=== PATIENT | female | born 1970 | race Caucasian/White ===

== ENCOUNTER → 2018-01-31 | Outpatient (CLI) | payer OTHER ==
--- NOTE | 2018-02-02 21:07 | Diagnostic Imaging Report ---
The current study was also evaluated with a Computer Aided Detection (CAD) system. 3-D tomosynthesis was also performed and reviewed. Digital mammogram bilateral screening This is the patient's baseline study. At this time, there are no current complaints. There are scattered fibroglandular densities in both breasts which could obscure a lesion. In the 9 o'clock position of the left breast approximately 7-8 CM deep to the nipple there is a group of microcalcifications. I would recommend that these microcalcifications be compressed and magnified in the CC and ML projection so that they can be better characterized. There is no primary or secondary sign of malignancy noted otherwise. IMPRESSION: Additional mammographic views of the left breast would be recommended for further study. ACR BI-RADS Category 0: Incomplete. (Needs additional imaging evaluation). Result letter will be mailed to the patient. Note: At least 10% of breast cancer is not imaged by mammography. Dictated by: Dictated on workstation # [id number]
== END ==
LOC: RAD 08:08
PROVIDERS: ATTEND Nurse Practitioner Family
DX: Z12.31 Encounter for screening mammogram for malignant neoplasm of breast (principal)
CPT/HCPCS: 77067

== ENCOUNTER → 2018-04-05 | Outpatient (CLI) | payer OTHER ==
--- NOTE | 2018-04-05 12:57 | Diagnostic Imaging Report ---
Indication: Abnormal left mammogram. Patient presents for additional views. Correlation is made with the screening mammogram from 01/31/2018. 2-D and 3-D unilateral left diagnostic mammography was performed with CAD. Magnification CC and MLO as well as mediolateral views were performed. There is nodularity in the outer left breast mid-to posterior depth slightly cephalad to the nipple with numerous suspicious calcifications. This is highly suspicious for neoplasm. Calcifications appear to be pleomorphic. Impression: Suspicious microcalcifications within a nodular mass in the upper and outer left breast posterior depth. This is suspicious for neoplasm and further evaluation with ultrasound is recommended. BI-RADS 0 ACR BI-RADS Category 0: Incomplete. (Needs additional imaging evaluation). Result letter will be mailed to the patient. Note: At least 10% of breast cancer is not imaged by mammography. Dictated by: Dictated on workstation # [id number]
--- NOTE | 2018-04-05 18:52 | Diagnostic Imaging Report ---
INDICATION: Abnormal left mammogram demonstrating microcalcifications and nodularity in the outer left breast. COMPARISON: Correlation is made with diagnostic mammogram earlier the same day. EXAMINATION: Sonographic interrogation of the outer left breast. FINDINGS: Hypoechoic mass at the 3 o'clock location, 7 cm from the nipple. This measures 8 mm x 7 mm x 8 mm. This likely accounts for the mammographic density. There appears to be some mild posterior acoustic shadowing present. No other abnormalities are seen. IMPRESSION: Hypoechoic mass at the 3 o'clock location of the left breast 7 cm from the nipple, corresponding to the mammographic abnormality. Features are concerning for breast neoplasm. Tissue sampling is recommended. This would be amenable to ultrasound-guided core biopsy. ACR BI-RADS Category 4: Suspicious abnormality. Result letter will be mailed to the patient. Note: At least 10% of breast cancer is not imaged by mammography. Dictated by: Dictated on workstation # [id number]
== END ==
LOC: RAD 12:29
PROVIDERS: ATTEND Nurse Practitioner Family
DX: N63.20 Unspecified lump in the left breast, unspecified quadrant (principal); R92.1 Mammographic calcification found on diagnostic imaging of breast
CPT/HCPCS: 76642

== ENCOUNTER → 2018-04-18 | Outpatient (CLI) | payer OTHER ==
[~2018-04-18] MED LIST: LIDOCAINE 1% INJ 20 ML 20 ML VIAL ONE
--- NOTE | 2018-04-18 10:56 | Diagnostic Imaging Report ---
EXAMINATION: Ultrasound-guided biopsy of the left breast. INDICATION: Abnormal ultrasound and mammogram. The recent left breast ultrasound exam of 04/05/2018 noted a hypoechoic mass in the 3 o'clock position of the left breast approximately 7 cm from the nipple. This finding was concerning for neoplasm. PROCEDURE: Following aseptic preparation of the skin and administration of local anesthesia, the area in question was biopsied using ultrasound guidance. Five passes with an Achieve 14-gauge needle were obtained. Following the procedure, a clip was inserted into the biopsy site. The patient tolerated the procedure well and was dismissed in good condition. IMPRESSION: There has been successful ultrasound-guided biopsy of the left breast. A final pathology report is pending. Dictated by: Dictated on workstation # [id number]
--- NOTE | 2018-04-20 15:49 | RADIOLOGY REPORT ---
NAME: JET DEGROOT [facility] REC#: [id number] PT STATUS: REG CLI : 1970 PHYSICIAN: CAPO HELTON MD ADMIT DATE: 04/05/18/RAD Signed Date of Exam:04/18/18 MAMMO LT DIAGNOSTIC EXAMINATION: Left diagnostic mammogram. INDICATION: Post biopsy. FINDINGS: The patient did undergo an ultrasound-guided biopsy of the left breast earlier today. There is a clip in the region of the calcifications in question. The clip lies inferior and lateral to the calcifications. IMPRESSION: There is a stereotactic clip in the region of the calcifications in question. A final Pathology report is pending. Dictated by: Dictated on workstation # [id number] Dict: 04/18/18 1245 Trans: 04/19/18 0949 [id number] Interpreted by: CAPO HELTON MD Electronically signed by: CAPO HELTON MD 04/19/18 0949 MTDD
== END ==
LOC: RAD 08:32
PROVIDERS: ATTEND Nurse Practitioner Family
DX: D05.12 Intraductal carcinoma in situ of left breast (principal)
CPT/HCPCS: 19083; 88305; 88360

== ENCOUNTER 2018-04-26 08:43 | Outpatient (RCR) | payer OTHER ==
[2018-05-11] MEDS ORDERED: LISI1TAB10 PO (12:45)
[2018-05-16] MEDS ORDERED: ACHD5005 PO (11:52)
== END 2018-06-14 10:18 | disposition home or self-care (01) ==
LOC: ONC 08:43
PROVIDERS: ATTEND Internal Medicine Hematology & Oncology
DX: D05.12 Intraductal carcinoma in situ of left breast (principal)
CPT/HCPCS: 99214

== ENCOUNTER 2018-05-16 07:28 | Day surgery (SDC) | payer SELFPAY ==
[~2018-05-16] VITALS: Ht 172.7 cm; Wt 99.3 kg
[~2018-05-16 07:28] MED LIST changes: -LIDOCAINE 1% INJ 20 ML 20 ML VIAL ONE; +LISI1TAB10 PO
--- OUTSIDE RECORDS SUMMARY | 2018-05-16 07:39 | XMS REPORT ---
Author Author KING JAZ [facility] Address [address] [place] [address] Care Team Providers Care Engineering Technologist Name Role Phone JAZ GUNDERSON Unavailable PROBLEMS Type Condition ICD9-CM Code [id number] Code Onset Dates Condition Status SNOMED Code Problem Depressive disorder F32.9 Active 32428438 Problem Acquired hypothyroidism E03.9 Active 588668821 Problem Essential hypertension I10 Active 68023591 Problem Generalized anxiety disorder F41.1 Active 66458466 Problem Acute stress reaction F43.0 Active 03124283 Problem Bilateral acute serous otitis media, recurrence not specified H65.03 Active 975154418 Problem Irritable bowel syndrome, unspecified type K58.9 Active 13341489 Problem Tobacco abuse Z72.0 Active 010948881 Problem Anxiety F41.9 Active 22025772 ALLERGIES No Information ENCOUNTERS Encounter Location Date Diagnosis [place] [id number] [address] Mar, Abnormal mammogram R92.8 [place] [address] [address] Dec, Well woman exam with routine gynecological exam Z01.419 and Screening for breast cancer Z12.31 [place] [address] [place] [id number] [place] [address]996- 7058 Dec, Essential hypertension I10 and Acute stress reaction F43.0 [facility] [address] [address] Aug, Essential hypertension I10 ; Acute stress reaction F43.0 ; Generalized anxiety disorder F41.1 and Tobacco abuse Z72.0 [place] [address] [address] Feb, Essential hypertension I10 and Chest pain, atypical R07.89 [facility] [address] [place] [id number] [place] [address]1084 Feb, Other chest pain R07.89 [facility] [address] 15[address] Feb, Essential hypertension I10 [facility] [address] [address] Jan, Essential hypertension I10 [facility] [address] [address] Oct, Essential hypertension I10 [facility] [address] [address] September, Open bite of unspecified finger without damage to nail, initial encounter S61.259A and Encounter for immunization Z23 [place] [address] [address] September, Essential hypertension I10 [facility] [address] [place] [id number] [place] [address] 78198- 6065 Jun, Depressive disorder F32.9 [place] [address] [place] [id number] [place] [address] 81245- 8697 May, Depressive disorder F32.9 [place] [address] [place] [id number] [place] [address] 13045- 7670 May, Depressive disorder F32.9 ; Acquired hypothyroidism E03.9 ; Essential hypertension I10 and Irritable bowel syndrome, unspecified type K58.9 [facility] [address] [place] [id number] [place] [address] 59073- 7552 May, Depressive disorder F32.9 [place] [address] [place] [id number] [place] [address] 65555- 4396 Apr, [facility] [address] [place] [id number] [place] [address] 65799- 5702 Mar, Depressive disorder F32.9 [facility] [address] [address] Feb, [facility] [address] [place] [id number] [place] [address] 25767- 8318 Feb, Depressive disorder F32.9 [facility] [address] [place] [id number] [place] [address] 99568- 7340 Jan, Depressive disorder F32.9 [facility] [address] [place] [id number] [place] [address] 95376- 5257 Dec, Essential hypertension I10 and Bilateral acute serous otitis media, recurrence not specified H65.03 [facility] [address] [address] Dec, Essential hypertension I10 [place] [address] [place] [id number] [place] [address] 18067- 8504 Dec, Depressive disorder F32.9 [facility] [address] [place] [id number] [place] [address] 00975- 8918 Dec, Establishing care with new doctor, encounter for Z71.89 ; Acquired hypothyroidism E03.9 ; Essential hypertension I10 and Irritable bowel syndrome, unspecified type K58.9 [facility] [address] [place] [address] 60247- 7769 Dec, [facility] [address] [place] [id number] [place] [address] 14854- 0748 Nov, Depressive disorder F32.9 [facility] [address] [place] [id number] [place] [address] 42481- 8542 Oct, Depressive disorder F32.9 [facility] [address] [place] [id number] [place] [address] 02119- 5070 September, Depressive disorder F32.9 [facility] [address] [place] [id number] [place] [address] 82593- 9974 Aug, Depressive disorder F32.9 [facility] [address] [place] [id number] [place] [address] 94734- 9566 Jun, Depressive disorder F32.9 IMMUNIZATIONS No Known Immunizations SOCIAL HISTORY Never Assessed REASON FOR VISIT New Mammo Order PLAN OF CARE VITAL SIGNS MEDICATIONS Unknown Medications RESULTS No Results PROCEDURES No Known procedures INSTRUCTIONS MEDICATIONS ADMINISTERED No Known Medications MEDICAL (GENERAL) HISTORY Type Description Date Medical History Hypothyroidism Medical History hypertension Surgical History cyst removed from shoulder 2008 Hospitalization History No Hospitalization history information
--- OUTSIDE RECORDS SUMMARY | 2018-05-16 07:39 | XMS REPORT ---
Author Author KENYETTA ENCISO Organization [facility] Address [address] 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 109809388 Problem Generalized anxiety disorder F41.1 Active 51852489 Problem Anxiety F41.9 Active 97675947 Problem Acquired hypothyroidism E03.9 Active 629017736 Problem Acute stress reaction F43.0 Active 24985581 Problem Tobacco abuse Z72.0 Active 861793488 ALLERGIES No Information ENCOUNTERS Encounter Location Date Diagnosis [place] [address] [place] [id number] [place] [address] Apr, Ductal carcinoma in situ (DCIS) of left breast D05.12 [place] [address] [place] [address] 69322- 9997 Apr, [facility] [address] [place] [address] 25628- 7183 Mar, Abnormal mammogram R92.8 [facility] [address] [place] [id number] [place] [address] 69601- 9328 Mar, Abnormal mammogram R92.8 [place] [address] [place] [id number] [place] [address] 75207- 0863 Dec, Well woman exam with routine gynecological exam Z01.419 and Screening for breast cancer Z12.31 [place] [address] [place] [id number] [place] [address] 41970- 2041 Dec, Essential hypertension I10 and Acute stress reaction F43.0 [place] [address] [place] [id number] [place] [address] 62734- 9464 Aug, Essential hypertension I10 ; Acute stress reaction F43.0 ; Generalized anxiety disorder F41.1 and Tobacco abuse Z72.0 [place] [address] [place] [id number] [place] [address] 50235- 2054 Feb, Essential hypertension I10 and Chest pain, atypical R07.89 [facility] [address] [address] Feb, Other chest pain R07.89 [place] [address] 86341- 99[address] Feb, Essential hypertension I10 [place] [address] 59861- [address]297 Jan, Essential hypertension I10 [place] [address] 8[address]- 24[address] Oct, Essential hypertension I10 [facility] [address] [address] September, Open bite of unspecified finger without damage to nail, initial encounter S61.259A and Encounter for immunization Z23 [place] [address] [place] [id number] [place] [address] 96945- 5225 September, Essential hypertension I10 [place] [address] [place] [id number] [place] [address] 75746- 5977 Jun, Depressive disorder F32.9 [place] [address] 41271- 28[address] May, Depressive disorder F32.9 [place] [address] [place] [id number] [place] [address] 63592- 4305 May, Depressive disorder F32.9 ; Acquired hypothyroidism E03.9 ; Essential hypertension I10 and Irritable bowel syndrome, unspecified type K58.9 [facility] [address] [address] May, Depressive disorder F32.9 [facility] [address] [place] [id number] [place] [address] 47953- 2360 Apr, [facility] [address] [place] [id number] [place] [address] 13502- 9313 Mar, Depressive disorder F32.9 [facility] [address] [place] [id number] [place] [address] 56029 -6556 Feb, [facility] [address] [place] [id number] [place] [address] 47966- 1580 Feb, Depressive disorder F32.9 [facility] [address] [place] [id number] [place] [address] 08069- 3684 Jan, Depressive disorder F32.9 [facility] [address] [place] [id number] [place] [address] 72505- 4467 Dec, Essential hypertension I10 and Bilateral acute serous otitis media, recurrence not specified H65.03 [facility] [address] [place] [id number] [place] [address] 63641- 7470 Dec, Essential hypertension I10 [facility] [address] [place] [id number] [place] [address] 58262- 3019 Dec, Depressive disorder F32.9 [facility] [address] [place] [id number] [place] [address] 55867- 6562 Dec, Establishing care with new doctor, encounter for Z71.89 ; Acquired hypothyroidism E03.9 ; Essential hypertension I10 and Irritable bowel syndrome, unspecified type K58.9 [facility] [address] [place] [id number] [place] [address] 09103- 7492 Dec, [facility] [address] [place] [address] 74691- 1571 Nov, Depressive disorder F32.9 [facility] [address] [place] [id number] [place] [address] 66242- 4206 Oct, Depressive disorder F32.9 [facility] [address] [facility] [id number] [place] [address] September, Depressive disorder F32.9 [facility] [address] [place] [id number] [address] Aug, Depressive disorder F32.9 [facility] [address] [facility] [id number] Jun, Depressive disorder F32.9 IMMUNIZATIONS No Known Immunizations SOCIAL HISTORY Never Assessed REASON FOR VISIT biopsy results PLAN OF CARE VITAL SIGNS MEDICATIONS Unknown Medications RESULTS No Results PROCEDURES No Known procedures INSTRUCTIONS MEDICATIONS ADMINISTERED No Known Medications MEDICAL (GENERAL) HISTORY Type Description Date Medical History Hypothyroidism Medical History hypertension Surgical History cyst removed from shoulder 2008 Hospitalization History No Hospitalization history information
--- OUTSIDE RECORDS SUMMARY | 2018-05-16 07:39 | XMS REPORT ---
Author Author KENYETTA ENCISO Organization [facility] Address [address] [place] [address] Care Team Providers Care Dependency Director Name Role Phone KENYETTA ENCISO Unavailable PROBLEMS Type Condition ICD9-CM Code [id number] Code Onset Dates Condition Status SNOMED Code Problem Depressive disorder F32.9 Active 40218583 Problem Acquired hypothyroidism E03.9 Active 268973402 Problem Essential hypertension I10 Active 43176407 Problem Generalized anxiety disorder F41.1 Active 80542385 Problem Acute stress reaction F43.0 Active 38967119 Problem Bilateral acute serous otitis media, recurrence not specified H65.03 Active 170219630 Problem Irritable bowel syndrome, unspecified type K58.9 Active 59815180 Problem Tobacco abuse Z72.0 Active 200301900 Problem Anxiety F41.9 Active 29907380 ALLERGIES No Known Allergies ENCOUNTERS Encounter Location Date Diagnosis [facility] [address] [address] Aug, Essential hypertension I10 ; Acute stress reaction F43.0 ; Generalized anxiety disorder F41.1 and Tobacco abuse Z72.0 [facility] [address] [place] [id number] [place] [address] 21868- 2941 Feb, Essential hypertension I10 and Chest pain, atypical R07.89 [facility] [address] [place] [address] 88478 -4380 Feb, Other chest pain R07.89 [facility] [address] [address]31- 77[address] Feb, Essential hypertension I10 [facility] [address] [place] [id number] [place] [address] 73933- 3861 Jan, Essential hypertension I10 [facility] [address] 23[address]- [address] Oct, Essential hypertension I10 [facility] [address] [place] [id number] [place] [address] 68068 -8218 September, Open bite of unspecified finger without damage to nail, initial encounter S61.259A and Encounter for immunization Z23 [facility] [address] [place] [id number] [place] [address] 10136- 2506 September, Essential hypertension I10 [facility] [address] 9[address]- 9718 Jun, Depressive disorder F32.9 [facility] [address] [place] [id number] [place] [address] 30752- 3476 May, Depressive disorder F32.9 [facility] [address] [place] [id number] [place] [address] 85503- 8909 May, Depressive disorder F32.9 ; Acquired hypothyroidism E03.9 ; Essential hypertension I10 and Irritable bowel syndrome, unspecified type K58.9 [facility] [address] [place] [id number] [place] [address] 04483- 6732 May, Depressive disorder F32.9 [facility] [address] [place] [id number] [place] [address] 71205- 9808 Apr, [facility] [address] [place] [id number] [place] [address] 21920- 8128 Mar, Depressive disorder F32.9 [facility] [address] [place] [id number] [place] [address] 40045 -5647 Feb, [facility] [address] [place] [id number] [place] [address] 64979- 0369 Feb, Depressive disorder F32.9 [facility] [address] [place] [id number] [place] [address] 47336- 3426 Jan, Depressive disorder F32.9 [facility] [address] [place] [id number] [place] [address] 61707- 2730 Dec, Essential hypertension I10 and Bilateral acute serous otitis media, recurrence not specified H65.03 [facility] [address] [place] [id number] [place] [address] 43044- 8834 Dec, Essential hypertension I10 [place] [address] [place] [id number] [place] [address] 26452- 3465 Dec, Depressive disorder F32.9 [place] [address] [place] [id number] [place] [address] 45983- 1783 Dec, Establishing care with new doctor, encounter for Z71.89 ; Acquired hypothyroidism E03.9 ; Essential hypertension I10 and Irritable bowel syndrome, unspecified type K58.9 [place] [address] 94060- 4137 Dec, [place] [address] [place] [id number] [place] [address] 22034- 1147 Nov, Depressive disorder F32.9 [place] [address] [place] [id number] [place] [address] 43006- 4332 Oct, Depressive disorder F32.9 [place] [address] [place] [id number] [place] [address] 96083- 2346 September, Depressive disorder F32.9 [place] [address] [place] [id number] [place] [address] 34269- 6174 Aug, Depressive disorder F32.9 [place] [address] [place] [id number] [place] [address] 24826- 6078 Jun, Depressive disorder F32.9 IMMUNIZATIONS No Known Immunizations SOCIAL HISTORY Never Assessed REASON FOR VISIT HTN WB-MA PLAN OF CARE Activity Details Follow Up 3 Months Reason:anxiety/HTN VITAL SIGNS Height 68 in 2017-09-04 Weight 203 lbs 2017-09-04 Temperature 98.1 degrees Fahrenheit 2017-09-04 Heart Rate 82 bpm 2017-09-04 Respiratory Rate 20 2017-09-04 BMI 30.86 kg/m2 2017-09-04 Blood pressure systolic 126 mmHg 2017-09-04 Blood pressure diastolic 84 mmHg 2017-09-04 MEDICATIONS Medication Instructions Dosage Frequency Start Date End Date Duration Status Lisinopril-Hydrochlorothiazide 20-12.5 MG Orally Once a day 1 tablet 24h Dec, Active Augmentin 875-125 MG Orally every 12 hrs 1 tablet 12h Not-Taking Paxil 20 mg Orally Once a day 1 tablet in the morning 24h Aug, 30 day(s) Active Fish Oil 1000 MG Orally Once a day 1 capsule 24h Not-Taking RESULTS No Results PROCEDURES Procedure Date Ordered Result Body Site COMPLETE CBC W/AUTO DIFF WBC September 04, 2017 COMPREHEN METABOLIC PANEL September 04, 2017 ASSAY THYROID STIM HORMONE September 04, 2017 LIPID PANEL September 04, 2017 VENIPUNCT, ROUTINE* September 04, 2017 INSTRUCTIONS MEDICATIONS ADMINISTERED No Known Medications MEDICAL (GENERAL) HISTORY Type Description Date Medical History Hypothyroidism Medical History hypertension Surgical History cyst removed from shoulder 2008
--- OUTSIDE RECORDS SUMMARY | 2018-05-16 07:39 | XMS REPORT ---
Author Author KENYETTA ENCISO Organization [facility], [place] Address [address] [place] [address] Care Team Providers Care Typesetters Printer Name Role Phone KENYETTA ENCISO Unavailable PROBLEMS Type Condition ICD9-CM Code [id number] Code Onset Dates Condition Status SNOMED Code Problem Depressive disorder F32.9 Active 92224712 Problem Acquired hypothyroidism E03.9 Active 466631595 Problem Essential hypertension I10 Active 04640368 Problem Generalized anxiety disorder F41.1 Active 53072799 Problem Acute stress reaction F43.0 Active 41663407 Problem Bilateral acute serous otitis media, recurrence not specified H65.03 Active 235941091 Problem Irritable bowel syndrome, unspecified type K58.9 Active 97873708 Problem Tobacco abuse Z72.0 Active 974505858 Problem Anxiety F41.9 Active 66807367 ALLERGIES No Known Allergies ENCOUNTERS Encounter Location Date Diagnosis [facility], [place] [id number] [place] [address] 17672- 7075 Dec, Well woman exam with routine gynecological exam Z01.419 and Screening for breast cancer Z12.31 [facility] [place] [id number] [place] [address] 75561- 4248 Dec, Essential hypertension I10 and Acute stress reaction F43.0 [facility] [place] [address] [place] [address] 87266- 5014 Aug, Essential hypertension I10 ; Acute stress reaction F43.0 ; Generalized anxiety disorder F41.1 and Tobacco abuse Z72.0 [facility] [place] [id number] [place] [address] 08602- 7690 Feb, Essential hypertension I10 and Chest pain, atypical R07.[address] [facility] [id number] [place] [address] 45253 -6514 06 Oct, 2017 Other chest pain R07.89 [facility] [place] [id number] [place] [address] 81269- 0029 Feb, Essential hypertension I10 [facility] [place] [id number] [place] [address] 61866- 5066 Jan, Essential hypertension I10 [facility] [place] [id number] [place] [address] 54848- 5651 Oct, Essential hypertension I10 [facility] [address] 13029 [address]7309 September, Open bite of unspecified finger without damage to nail, initial encounter S61.259A and Encounter for immunization Z23 [place] [id number] [place] [address] 86338- 8655 September, Essential hypertension I10 [facility] [place] [address] 39930- 5861 Jun, Depressive disorder F32.9 [facility] [place] [id number] [place] [address] 96540- 7416 May, Depressive disorder F32.9 [facility] [place] [id number] [place] [address] 77826- 8349 May, Depressive disorder F32.9 ; Acquired hypothyroidism E03.9 ; Essential hypertension I10 and Irritable bowel syndrome, unspecified type K58.9 [facility] [place] [id number] [place] [address] 90391- 3122 May, Depressive disorder F32.9 [facility] [place] [id number] [place] [address] 03888- 6909 Apr, [facility] [place] [id number] [place] [address] 42910- 5897 Mar, Depressive disorder F32.9 [facility] [id number] [place] [address] 35098 -9727 Feb, [facility] [place] [address] [place] [address]- 1465 Feb, Depressive disorder F32.9 [facility] [place] [id number] [place] [address] 88124- 1922 Jan, Depressive disorder F32.9 [facility] [place] [id number] [place] [address] 30808- 9866 Dec, Essential hypertension I10 and Bilateral acute serous otitis media, recurrence not specified H65.03 [facility] [place] [id number] [place] [address] 17173- 6855 Dec, Essential hypertension I10 [place] [facility] [id number] [place] [address] 49154- 0439 Dec, Depressive disorder F32.9 [facility] [place] [id number] [place] [address] 03476- 8806 Dec, Establishing care with new doctor, encounter for Z71.89 ; Acquired hypothyroidism E03.9 ; Essential hypertension I10 and Irritable bowel syndrome, unspecified type K58.9 [facility] [place] [id number] [place] [address] 00869- 3735 Dec, [facility] [place] [id number] [place] [address] 89870- 7160 Nov, Depressive disorder F32.9 [facility] [place] [id number] [place] [address] 23250- 9929 Oct, Depressive disorder F32.9 [facility] [place] [id number] [place] [address] 13870- 5496 September, Depressive disorder F32.9 [facility] [place] [id number] [place] [address] 27140- 0964 Aug, Depressive disorder F32.9 [facility] [place] [id number] [place] [address] 53202- 9603 Jun, Depressive disorder F32.9 IMMUNIZATIONS No Known Immunizations SOCIAL HISTORY Never Assessed REASON FOR VISIT HTN/Anxiety aburk, rn PLAN OF CARE Activity Details Follow Up 6 Months Reason: VITAL SIGNS Height 68 in 2017-12-27 Weight 205.8 lbs 2017-12-27 Temperature 98.7 degrees Fahrenheit 2017-12-27 Heart Rate 74 bpm 2017-12-27 Respiratory Rate 18 2017-12-27 BMI 31.29 kg/m2 2017-12-27 Blood pressure systolic 112 mmHg 2017-12-27 Blood pressure diastolic 62 mmHg 2017-12-27 MEDICATIONS Medication Instructions Dosage Frequency Start Date End Date Duration Status Paxil 20 mg Orally Once a day 1 tablet in the morning 24h Aug, 30 day(s) Not-Taking Lisinopril-Hydrochlorothiazide 20-12.5 MG Orally Once a day 1 tablet 24h Dec, Active Fish Oil 1000 MG Orally Once a day 1 capsule 24h Not-Taking Augmentin 875-125 MG Orally every 12 hrs 1 tablet 12h Not-Taking RESULTS No Results PROCEDURES No Known procedures INSTRUCTIONS MEDICATIONS ADMINISTERED No Known Medications MEDICAL (GENERAL) HISTORY Type Description Date Medical History Hypothyroidism Medical History hypertension Surgical History cyst removed from shoulder 2008 Hospitalization History No Hospitalization history information
--- OUTSIDE RECORDS SUMMARY | 2018-05-16 07:39 | XMS REPORT ---
Author Author JALYN JAZ [facility] Address [address] [place] [address] Care Team Providers Care Crew Attendant Name Role Phone JAZ GUNDERSON Unavailable PROBLEMS Type Condition ICD9-CM Code [id number] Code Onset Dates Condition Status SNOMED Code Problem Depressive disorder F32.9 Active 09609635 Problem Acquired hypothyroidism E03.9 Active 765664339 Problem Essential hypertension I10 Active 66563162 Problem Generalized anxiety disorder F41.1 Active 34713271 Problem Acute stress reaction F43.0 Active 02532891 Problem Bilateral acute serous otitis media, recurrence not specified H65.03 Active 439632563 Problem Irritable bowel syndrome, unspecified type K58.9 Active 93617172 Problem Tobacco abuse Z72.0 Active 384802426 Problem Anxiety F41.9 Active 30072870 ALLERGIES No Information ENCOUNTERS Encounter Location Date Diagnosis [facility] [id number] [place] [address] 70169- 8819 Mar, Abnormal mammogram R92.8 [facility] [id number] [place] [address] 65042- 4513 Mar, Abnormal mammogram R92.8 [facility] [id number] [place] [address] 02649- 9515 Dec, Well woman exam with routine gynecological exam Z01.419 and Screening for breast cancer Z12.31 [facility] [id number] [place] [address] 96308- 0697 Dec, Essential hypertension I10 and Acute stress reaction F43.0 [facility] [id number] [place] [address] 37230- 3549 Aug, Essential hypertension I10 ; Acute stress reaction F43.0 ; Generalized anxiety disorder F41.1 and Tobacco abuse Z72.0 [facility] [facility] [id number] [place] [address] 29356- 0310 Feb, Essential hypertension I10 and Chest pain, atypical R07.89 [facility] [id number] [place] [address] 20044 -7501 Feb, Other chest pain R07.89 [facility] [id number] [place] [address] 47363- 3925 Feb, Essential hypertension I10 [facility] [id number] [place] [address] 65306- 5036 Jan, Essential hypertension I10 [place] [address] 64595- 3131 Oct, Essential hypertension I10 [facility] [id number] [place] [address] 47541 -8517 September, Open bite of unspecified finger without damage to nail, initial encounter S61.259A and Encounter for immunization Z23 [place] [id number] [place] [address] 96617- 4102 September, Essential hypertension I10 [place] [id number] [place] [address] 31960- 5087 Jun, Depressive disorder F32.9 [place] [facility] [id number] [place] [address] 91811- 8917 May, Depressive disorder F32.9 [place] [facility] [id number] [place] [address] 30348- 1268 May, Depressive disorder F32.9 ; Acquired hypothyroidism E03.9 ; Essential hypertension I10 and Irritable bowel syndrome, unspecified type K58.9 [place] [facility] [id number] [place] [address] 70237- 4438 May, Depressive disorder F32.9 [place] [id number] [place] [address] 14148- 2064 Apr, [place] [id number] [place] [address] 63365- 9848 Mar, Depressive disorder F32.9 [facility] [id number] [place] [address] 96124 -6070 Feb, [facility] [id number] [place] [address] 67407- 5021 Feb, Depressive disorder F32.9 [facility] [id number] [place] [address] 53145- 2348 Jan, Depressive disorder F32.9 [facility] [id number] [place] [address] 74798- 9415 Dec, Essential hypertension I10 and Bilateral acute serous otitis media, recurrence not specified H65.03 [facility] [id number] [place] [address] 40848- 0328 Dec, Essential hypertension I10 [facility] [id number] [place] [address] 23052- 6598 Dec, Depressive disorder F32.9 [facility] [id number] [place] [address] 96424- 5255 Dec, Establishing care with new doctor, encounter for Z71.89 ; Acquired hypothyroidism E03.9 ; Essential hypertension I10 and Irritable bowel syndrome, unspecified type K58.9 [facility] [id number] [place] [address] 18224- 2813 Dec, [facility] [id number] [place] [address] 54914- 0595 Nov, Depressive disorder F32.9 [facility] [id number] [place] [address] 73047- 8487 Oct, Depressive disorder F32.9 [facility] [id number] [place] [address] 36100- 9590 September, Depressive disorder F32.9 [facility] [id number] [place] [address] 67874- 1476 Aug, Depressive disorder F32.9 [facility] [address] [facility] [id number] [address]- 6885 Jun, Depressive disorder F32.9 IMMUNIZATIONS No Known Immunizations SOCIAL HISTORY Never Assessed REASON FOR VISIT PLAN OF CARE VITAL SIGNS MEDICATIONS Unknown Medications RESULTS No Results PROCEDURES No Known procedures INSTRUCTIONS MEDICATIONS ADMINISTERED No Known Medications MEDICAL (GENERAL) HISTORY Type Description Date Medical History Hypothyroidism Medical History hypertension Surgical History cyst removed from shoulder 2008 Hospitalization History No Hospitalization history information
--- OUTSIDE RECORDS SUMMARY | 2018-05-16 07:39 | XMS REPORT ---
Author Author JERROD GAINES [facility] Address [address] [place] [address] Care Team Providers Care Driver Manager Name Role Phone JERROD GAINES Unavailable PROBLEMS Type Condition ICD9-CM Code [id number] Code Onset Dates Condition Status SNOMED Code Problem Bilateral acute serous otitis media, recurrence not specified H65.03 Active 057003714 Problem Acquired hypothyroidism E03.9 Active 277547128 Problem Depressive disorder F32.9 Active 27732408 Problem Essential hypertension I10 Active 42807155 Problem Irritable bowel syndrome, unspecified type K58.9 Active 01627759 ALLERGIES No Known Allergies SOCIAL HISTORY No smoking Hx information available PLAN OF CARE Activity Details Follow Up 4 Weeks Reason:BH F/U VITAL SIGNS MEDICATIONS No Known Medications RESULTS No Results PROCEDURES Procedure Date Ordered Related Diagnosis Body Site Psychotherapy, patient &/family, 45 minutes, established patient May 10, 2016 IMMUNIZATIONS No Known Immunizations
--- OUTSIDE RECORDS SUMMARY | 2018-05-16 07:39 | XMS REPORT ---
Author Author KING JAZ [facility] Address [address] [place] [address] Care Team Providers Care Accountant Controller Name Role Phone JAZ GUNDERSON Unavailable PROBLEMS Type Condition ICD9-CM Code HCF14-KL Code Onset Dates Condition Status SNOMED Code Problem Depressive disorder F32.9 Active 68007922 Problem Acquired hypothyroidism E03.9 Active 699093441 Problem Essential hypertension I10 Active 32232957 Problem Generalized anxiety disorder F41.1 Active 66234131 Problem Acute stress reaction F43.0 Active 84720623 Problem Bilateral acute serous otitis media, recurrence not specified H65.03 Active 049305856 Problem Irritable bowel syndrome, unspecified type K58.9 Active 80603143 Problem Tobacco abuse Z72.0 Active 320659369 Problem Anxiety F41.9 Active 99428941 ALLERGIES No Known Allergies ENCOUNTERS Encounter Location Date Diagnosis [facility] [id number] [place] [address] 96666- 8247 Dec, Well woman exam with routine gynecological exam Z01.419 and Screening for breast cancer Z12.31 [facility] [address] [place] [address] 03669- 6503 Dec, Essential hypertension I10 and Acute stress reaction F43.0 [facility] [address] [place] [address] 79241- 2436 Aug, Essential hypertension I10 ; Acute stress reaction F43.0 ; Generalized anxiety disorder F41.1 and Tobacco abuse Z72.0 [facility] [id number] [place] [address] 92038- 4013 Feb, Essential hypertension I10 and Chest pain, atypical R07.89 [facility] [id number] [place] [address] 58619 -3030 06 Oct, 2017 Other chest pain R07.89 [facility] [id number] [place] [address] 33330- 2319 Feb, Essential hypertension I10 [facility] [id number] [place] [address] 74020- 2264 Jan, Essential hypertension I10 [facility] [id number] [place] [address] 84708- 8786 Oct, Essential hypertension I10 [facility] [address] 63982 -0795 September, Open bite of unspecified finger without damage to nail, initial encounter S61.259A and Encounter for immunization Z23 [place] [id number] [place] [address] 42747- 3348 September, Essential hypertension I10 [facility] [address] 39062- 2085 Jun, Depressive disorder F32.9 [facility] [id number] [place] [address] 58281- 7164 May, Depressive disorder F32.9 [facility] [id number] [place] [address] 09807- 3797 May, Depressive disorder F32.9 ; Acquired hypothyroidism E03.9 ; Essential hypertension I10 and Irritable bowel syndrome, unspecified type K58.9 [facility] [id number] [place] [address] 08493- 5931 May, Depressive disorder F32.9 [facility] [id number] [place] [address] 11760- 5739 Apr, [facility] [id number] [place] [address] 82373- 2519 Mar, Depressive disorder F32.9 [facility] [id number] [place] [address] 74217 -8140 Feb, [facility] [address] [place] [address]- 6469 Feb, Depressive disorder F32.9 [facility] [id number] [place] [address] 08968- 0573 Jan, Depressive disorder F32.9 [facility] [id number] [place] [address] 22376- 0757 Dec, Essential hypertension I10 and Bilateral acute serous otitis media, recurrence not specified H65.03 [facility] [id number] [place] [address] 71835- 4035 Dec, Essential hypertension I10 [place] [facility] [id number] [place] [address] 42603- 4458 Dec, Depressive disorder F32.9 [facility] [id number] [place] [address] 62713- 3236 Dec, Establishing care with new doctor, encounter for Z71.89 ; Acquired hypothyroidism E03.9 ; Essential hypertension I10 and Irritable bowel syndrome, unspecified type K58.9 [facility] [id number] [place] [address] 43148- 0452 Dec, [facility] [id number] [place] [address] 39162- 8205 Nov, Depressive disorder F32.9 [facility] [id number] [place] [address] 28682- 9355 Oct, Depressive disorder F32.9 [facility] [id number] [place] [address] 34630- 5432 September, Depressive disorder F32.9 [facility] [id number] [place] [address] 27661- 6714 Aug, Depressive disorder F32.9 [facility] [address] [place] [address] 73154- 3601 Jun, Depressive disorder F32.9 IMMUNIZATIONS No Known Immunizations SOCIAL HISTORY Never Assessed REASON FOR VISIT Well Woman Exam MICHELLE Decker PLAN OF CARE Activity Details Follow Up 1 Year or as indicated by labs Reason:WWE Pending Test Mammogram, Bilateral Screening VITAL SIGNS Height 68 in 2018-01-03 Weight 204.2 lbs 2018-01-03 Temperature 98.3 degrees Fahrenheit 2018-01-03 Heart Rate 76 bpm 2018-01-03 Respiratory Rate 18 2018-01-03 BMI 31.05 kg/m2 2018-01-03 Blood pressure systolic 128 mmHg 2018-01-03 Blood pressure diastolic 76 mmHg 2018-01-03 MEDICATIONS Medication Instructions Dosage Frequency Start Date End Date Duration Status Lisinopril-Hydrochlorothiazide 20-12.5 MG Orally Once a day 1 tablet 24h Dec, Active RESULTS No Results PROCEDURES Procedure Date Ordered Result Body Site SPECIMEN HANDLING Jan 03, 2018 Bacterial Vaginosis In House Jan 03, 2018 CULTURE, BACTERIA, OTHER Jan 03, 2018 INSTRUCTIONS MEDICATIONS ADMINISTERED No Known Medications MEDICAL (GENERAL) HISTORY Type Description Date Medical History Hypothyroidism Medical History hypertension Surgical History cyst removed from shoulder 2008 Hospitalization History No Hospitalization history information
--- OUTSIDE RECORDS SUMMARY | 2018-05-16 07:40 | XMS REPORT ---
Author Author ROSSANA GONZALES Organization [facility] Address [address] [place] [address] Care Team Providers Care Retarder Operator Name Role Phone ROSSANA GONZALES Unavailable PROBLEMS Type Condition ICD9-CM Code QEL07-AR Code Onset Dates Condition Status SNOMED Code Problem Bilateral acute serous otitis media, recurrence not specified H65.03 Active 071935201 Problem Acquired hypothyroidism E03.9 Active 754458045 Problem Depressive disorder F32.9 Active 65023936 Problem Essential hypertension I10 Active 57496830 Problem Irritable bowel syndrome, unspecified type K58.9 Active 22804938 ALLERGIES Unknown Allergies SOCIAL HISTORY No smoking Hx information available PLAN OF CARE VITAL SIGNS MEDICATIONS Medication Instructions Dosage Frequency Start Date End Date Duration Status Lisinopril-Hydrochlorothiazide 20-12.5 MG Orally Once a day 1 tablet 24h Dec, 21 days Active RESULTS No Results PROCEDURES No Known procedures IMMUNIZATIONS No Known Immunizations
--- OUTSIDE RECORDS SUMMARY | 2018-05-16 07:40 | XMS REPORT ---
Author Author ROSSANA GONZALES Organization [facility] Address [address] [place] [address] Care Team Providers Care Saw Cleaner Name Role Phone ROSSANA GONZALES Unavailable PROBLEMS Type Condition ICD9-CM Code [id number] Code Onset Dates Condition Status SNOMED Code Problem Bilateral acute serous otitis media, recurrence not specified H65.03 Active 798644833 Problem Irritable bowel syndrome, unspecified type K58.9 Active 31860746 Problem Depressive disorder F32.9 Active 75506145 Problem Acquired hypothyroidism E03.9 Active 675606756 Problem Essential hypertension I10 Active 77461097 ALLERGIES Substance Reaction Event Type Date Status N.K.D.A. Unknown Non Drug Allergy May, Unknown SOCIAL HISTORY No smoking Hx information available PLAN OF CARE Activity Details Follow Up 3 Months Reason:htn VITAL SIGNS Height 68 in 2016-05-10 Weight 205 lbs 2016-05-10 Temperature 98.3 degrees Fahrenheit 2016-05-10 Heart Rate 80 bpm 2016-05-10 Respiratory Rate 16 2016-05-10 BMI 31.17 kg/m2 2016-05-10 Blood pressure systolic 130 mmHg 2016-05-10 Blood pressure diastolic 80 mmHg 2016-05-10 MEDICATIONS Medication Instructions Dosage Frequency Start Date End Date Duration Status Lisinopril-Hydrochlorothiazide 20-12.5 MG Orally Once a day 1 tablet 24h Dec, 90 days Active Fish Oil 1000 MG Orally Once a day 1 capsule 24h Active RESULTS Name Result Date Reference Range TSH W/ FREE T4 2016-05-10 TSH 1.980 0.450-4.500 T4,Free(Direct) 1.12 0.82-1.77 CBC 2016-05-10 WBC 9.0 3.4-10.8 RBC 4.97 3.77-5.28 Hemoglobin 13.7 11.1-15.9 Hematocrit 41.9 34.0-46.6 MCV 84 79-97 MCH 27.6 26.6-33.0 MCHC 32.7 31.5-35.7 RDW 15.1 12.3-15.4 Platelets 442 150-379 Neutrophils 69 Lymphs 23 Monocytes 5 Eos 2 Basos 1 Immature Cells Neutrophils (Absolute) 6.2 1.4-7.0 Lymphs (Absolute) 2.1 0.7-3.1 Monocytes(Absolute) 0.5 0.1-0.9 Eos (Absolute) 0.2 0.0-0.4 Baso (Absolute) 0.1 0.0-0.2 Immature Granulocytes 0 Immature Grans (Abs) 0.0 0.0-0.1 NRBC Hematology Comments: CMP 2016-05-10 Glucose, Serum 114 65-99 BUN 15 6-24 Creatinine, Serum 0.92 0.57-1.00 eGFR If NonAfricn Am 77 >59 eGFR If Africn Am 88 >59 BUN/Creatinine Ratio 16 9-23 Sodium, Serum 142 134-144 Potassium, Serum 4.1 3.5-5.2 Chloride, Serum 99 96-106 Carbon Dioxide, Total 28 18-29 Calcium, Serum 9.6 8.7-10.2 Protein, Total, Serum 7.1 6.0-8.5 Albumin, Serum 4.3 3.5-5.5 Globulin, Total 2.8 1.5-4.5 A/G Ratio 1.5 1.1-2.5 Bilirubin, Total 0.2 0.0-1.2 Alkaline Phosphatase, S 67 39-117 AST (SGOT) 13 0-40 ALT (SGPT) 10 0-32 PROCEDURES Procedure Date Ordered Related Diagnosis Body Site ASSAY THYROID STIM HORMONE May 10, 2016 ASSAY OF FREE THYROXINE May 10, 2016 Office Visit, Est Pt., Level 3 May 10, 2016 COMPLETE CBC W/AUTO DIFF WBC May 10, 2016 VENIPUNCT, ROUTINE* May 10, 2016 COMPREHEN METABOLIC PANEL May 10, 2016 IMMUNIZATIONS No Known Immunizations
--- OUTSIDE RECORDS SUMMARY | 2018-05-16 07:40 | XMS REPORT ---
Author Author JERROD GAINES [facility] eClinicalWorks Address Unknown Phone Unavailable Care Team Providers Care Fish Checker Name Role Phone JERROD GAINES Unavailable Allergies No Known Allergies Problems Problem Type Condition Code Onset Dates Condition Status Problem Acquired hypothyroidism E03.9 Active Problem Essential hypertension I10 Active Problem Bilateral acute serous otitis media, recurrence not specified H65.03 Active Assessment Depressive disorder F32.9 Active Problem Irritable bowel syndrome, unspecified type K58.9 Active Problem Depressive disorder F32.9 Active Medications No Known Medications Procedures Procedure Coding System Code Date Psychotherapy, patient &/family, 45 minutes, established patient CPT-4 32694 Feb 23, 2016 Results No Known Results Summary Purpose eClinicalWorks Submission
--- OUTSIDE RECORDS SUMMARY | 2018-05-16 07:40 | XMS REPORT ---
Author Author JERROD GAINES [facility] eClinicalWorks Address Unknown Phone Unavailable Care Team Providers Care Weight Reduction Specialist Name Role Phone JERROD GAINES Unavailable Allergies No Known Allergies Problems Problem Type Condition Code Onset Dates Condition Status Problem Essential hypertension I10 Active Problem Irritable bowel syndrome, unspecified type K58.9 Active Problem Acquired hypothyroidism E03.9 Active Problem Depressive disorder F32.9 Active Assessment Depressive disorder F32.9 Active Medications No Known Medications Procedures Procedure Coding System Code Date Psychotherapy, patient &/family, 30 minutes, established patient CPT-4 59657 Dec 29, 2015 Results No Known Results Summary Purpose eClinicalWorks Submission
--- OUTSIDE RECORDS SUMMARY | 2018-05-16 07:40 | XMS REPORT ---
Author Author JERROD GAINES [facility] Address [address] [place] [address] Care Team Providers Care Assembler Motor Vehicle Name Role Phone JERROD GAINES Unavailable PROBLEMS Type Condition ICD9-CM Code RFH06-AS Code Onset Dates Condition Status SNOMED Code Problem Bilateral acute serous otitis media, recurrence not specified H65.03 Active 076436995 Problem Irritable bowel syndrome, unspecified type K58.9 Active 44536880 Problem Depressive disorder F32.9 Active 15035311 Problem Acquired hypothyroidism E03.9 Active 919672067 Problem Essential hypertension I10 Active 04944798 ALLERGIES No Information SOCIAL HISTORY Never Assessed PLAN OF CARE Activity Details Follow Up 4 Weeks Reason:BH F/U VITAL SIGNS MEDICATIONS Unknown Medications RESULTS No Results PROCEDURES Procedure Date Ordered Result Body Site Psychotherapy, patient &/family, 45 minutes, established patient Jul 05, 2016 IMMUNIZATIONS No Known Immunizations MEDICAL (GENERAL) HISTORY Type Description Date Medical History Hypothyroidism Medical History hypertension Surgical History cyst removed from shoulder 2008
--- OUTSIDE RECORDS SUMMARY | 2018-05-16 07:40 | XMS REPORT ---
Author Author JUAN GEORGE Organization [facility] Address [address] [place] [address] Care Team Providers Care Smelting Engineer Name Role Phone JUAN GEORGE Unavailable PROBLEMS Type Condition ICD9-CM Code [id number] Code Onset Dates Condition Status SNOMED Code Problem Bilateral acute serous otitis media, recurrence not specified H65.03 Active 483699831 Problem Irritable bowel syndrome, unspecified type K58.9 Active 64022781 Problem Depressive disorder F32.9 Active 20898386 Problem Acquired hypothyroidism E03.9 Active 867455707 Problem Essential hypertension I10 Active 15064475 ALLERGIES No Known Allergies SOCIAL HISTORY Never Assessed PLAN OF CARE Activity Details Follow Up prn Reason: VITAL SIGNS Height 68 in 2016-09-29 Weight 192.2 lbs 2016-09-29 Temperature 98.2 degrees Fahrenheit 2016-09-29 Heart Rate 84 bpm 2016-09-29 Respiratory Rate 20 2016-09-29 BMI 29.22 kg/m2 2016-09-29 Blood pressure systolic 126 mmHg 2016-09-29 Blood pressure diastolic 72 mmHg 2016-09-29 MEDICATIONS Medication Instructions Dosage Frequency Start Date End Date Duration Status Lisinopril-Hydrochlorothiazide 20-12.5 MG Orally Once a day 1 tablet 24h Dec, 30 days Active Augmentin 875-125 MG Orally every 12 hrs 1 tablet 12h September, Oct, 10 day(s) Active Fish Oil 1000 MG Orally Once a day 1 capsule 24h Active RESULTS No Results PROCEDURES Procedure Date Ordered Result Body Site TDAP (BOOSTRIX) September 29, 2016 SINGLE IMMUNIZATION ADMIN September 29, 2016 IMMUNIZATIONS Vaccine Route Administration Date Status TDAP (BOOSTRIX) IM Intramuscular September 29, 2016 Administered MEDICAL (GENERAL) HISTORY Type Description Date Medical History Hypothyroidism Medical History hypertension Surgical History cyst removed from shoulder 2008
--- OUTSIDE RECORDS SUMMARY | 2018-05-16 07:40 | XMS REPORT ---
Author Author ROSSANA GONZALES [facility] eClinicalWorks Address Unknown Phone Unavailable Care Team Providers Care Educational Therapist Name Role Phone ROSSANA GONZALES CP Unavailable Allergies No Known Allergies Problems Problem Type Condition Code Onset Dates Condition Status Problem Acquired hypothyroidism E03.9 Active Problem Essential hypertension I10 Active Problem Bilateral acute serous otitis media, recurrence not specified H65.03 Active Assessment Essential hypertension I10 Active Problem Irritable bowel syndrome, unspecified type K58.9 Active Problem Depressive disorder F32.9 Active Medications No Known Medications Vital Signs Date/Time: Jan 05, 2016 Blood Pressure Diastolic 80 mmHg Blood Pressure Systolic 116 mmHg Height 68 in Results No Known Results Summary Purpose eClinicalWorks Submission
--- OUTSIDE RECORDS SUMMARY | 2018-05-16 07:40 | XMS REPORT ---
Author Author ROSSANA GONZALES Organization [facility] Address [address] [place] [address] Care Team Providers Care Good Humor Vendor Name Role Phone GONZALES, ROSSANA Unavailable PROBLEMS Type Condition ICD9-CM Code IIT75-GC Code Onset Dates Condition Status SNOMED Code Problem Bilateral acute serous otitis media, recurrence not specified H65.03 Active 416485901 Problem Irritable bowel syndrome, unspecified type K58.9 Active 82281602 Problem Depressive disorder F32.9 Active 97036692 Problem Acquired hypothyroidism E03.9 Active 973059930 Problem Essential hypertension I10 Active 51022661 ALLERGIES No Known Allergies SOCIAL HISTORY Never Assessed PLAN OF CARE Activity Details Follow Up 3 Months Reason:htn VITAL SIGNS Height 68 in 2016-10-11 Weight 197.3 lbs 2016-10-11 Temperature 98.2 degrees Fahrenheit 2016-10-11 Heart Rate 76 bpm 2016-10-11 Respiratory Rate 20 2016-10-11 BMI 30.00 kg/m2 2016-10-11 Blood pressure systolic 138 mmHg 2016-10-11 Blood pressure diastolic 86 mmHg 2016-10-11 MEDICATIONS Medication Instructions Dosage Frequency Start Date End Date Duration Status Augmentin 875-125 MG Orally every 12 hrs 1 tablet 12h Active Lisinopril-Hydrochlorothiazide 20-12.5 MG Orally Once a day 1 tablet 24h Dec, 90 days Active RESULTS No Results PROCEDURES No Known procedures IMMUNIZATIONS No Known Immunizations MEDICAL (GENERAL) HISTORY Type Description Date Medical History Hypothyroidism Medical History hypertension Surgical History cyst removed from shoulder 2008
--- OUTSIDE RECORDS SUMMARY | 2018-05-16 07:40 | XMS REPORT ---
Author Author JERROD GAINES [facility] eClinicalWorks Address Unknown Phone Unavailable Care Team Providers Care Lacer And Tier Name Role Phone JERROD GAINES Unavailable Allergies [...] patient &/family, 45 minutes, established patient CPT-4 62139 Apr 05, 2016 Results No Known Results Summary Purpose eClinicalWorks Submission
--- OUTSIDE RECORDS SUMMARY | 2018-05-16 07:40 | XMS REPORT ---
Author ROSSANA Sauceda [facility] eClinicalWorks Address Unknown Phone Unavailable Care Team Providers Care Riveter Hand Name Role Phone ROSSANA GONZALES CP Unavailable Allergies, Adverse Reactions, Alerts Substance Reaction Event Type N.K.D.A. Info Not Available Non Drug Allergy Problems Problem Type Condition Code Onset Dates Condition Status Assessment Irritable bowel syndrome, unspecified type K58.9 Active Problem Essential hypertension I10 Active Problem Irritable bowel syndrome, unspecified type K58.9 Active Problem Acquired hypothyroidism E03.9 Active Assessment Acquired hypothyroidism E03.9 Active Assessment Essential hypertension I10 Active Problem Depressive disorder F32.9 Active Assessment Establishing care with new doctor, encounter for Z71.89 Active Medications Medication Code System Code Instructions Start Date End Date Status Dosage Fish Oil [facility] [address]-56 1000 MG Orally Once a day 1 capsule Lisinopril-Hydrochlorothiazide [facility] [address]-94 20-12.5 MG Orally Once a day Dec 29, 2015 1 tablet Procedures Procedure Coding System Code Date COMPREHEN METABOLIC PANEL CPT-4 68749 Dec 29, 2015 LIPID PANEL CPT-4 05922 Dec 29, 2015 COMPLETE CBC W/AUTO DIFF WBC CPT-4 95936 Dec 29, 2015 ASSAY OF FREE THYROXINE CPT-4 46036 Dec 29, 2015 ASSAY THYROID STIM HORMONE CPT-4 53993 Dec 29, 2015 VENIPUNCT, ROUTINE* CPT-4 07530 Dec 29, 2015 Office Visit, Est Pt., Level 4 CPT-4 55303 Dec 29, 2015 Vital Signs Date/Time: Dec 29, 2015 Cardiac Monitoring Heart Rate 76 bpm Weight 210.6 lbs Height 68 in BMI 32.02 Index Blood Pressure Diastolic 92 mmHg Blood Pressure Systolic 148 mmHg Results No Known Results Summary Purpose eClinicalWorks Submission
--- OUTSIDE RECORDS SUMMARY | 2018-05-16 07:40 | XMS REPORT ---
Author Author KENYETTA ENCISO Organization [facility] Address [address] [place] [address] Care Team Providers Care Mold Maker Plaster Name Role Phone KENYETTA ENCISO Unavailable PROBLEMS Type Condition ICD9-CM Code EAX39-TN Code Onset Dates Condition Status SNOMED Code Problem Depressive disorder F32.9 Active 38583308 Problem Acquired hypothyroidism E03.9 Active 959382241 Problem Essential hypertension I10 Active 40857049 Problem Generalized anxiety disorder F41.1 Active 46925457 Problem Acute stress reaction F43.0 Active 02956861 Problem Bilateral acute serous otitis media, recurrence not specified H65.03 Active 295797756 Problem Irritable bowel syndrome, unspecified type K58.9 Active 37582323 Problem Tobacco abuse Z72.0 Active 581783842 Problem Anxiety F41.9 Active 45486923 ALLERGIES No Known Allergies ENCOUNTERS Encounter Location Date Diagnosis [facility] [address] [address] Aug, Essential hypertension I10 ; Acute stress reaction F43.0 ; Generalized anxiety disorder F41.1 and Tobacco abuse Z72.0 [facility] [id number] [place] [address] Feb, Essential hypertension I10 and Chest pain, atypical R07.89 [facility] [id number] [place] [phone] Feb, Other chest pain R07.89 [facility] [address] [address] Feb, Essential hypertension I10 [facility] [id number] [place] [address] Jan, Essential hypertension I10 [facility] [address] [address] Oct, Essential hypertension I10 [facility] [id number] [place] [phone] September, Open bite of unspecified finger without damage to nail, initial encounter S61.259A and Encounter for immunization Z23 [facility] [id number] [place] [phone] September, Essential hypertension I10 [facility] [address] [address] Jun, Depressive disorder F32.9 [facility] [id number] [place] [phone] May, Depressive disorder F32.9 [facility] [id number] [place] [address] May, Depressive disorder F32.9 ; Acquired hypothyroidism E03.9 ; Essential hypertension I10 and Irritable bowel syndrome, unspecified type K58.9 [facility] [id number] [place] [phone] May, Depressive disorder F32.9 [facility] [id number] [place] [phone] Apr, [facility] [id number] [place] [address] Mar, Depressive disorder F32.9 [facility] [id number] [place] [phone] Feb, [facility] [id number] [place] [address] Feb, Depressive disorder F32.9 [facility] [id number] [place] [phone] Jan, Depressive disorder F32.9 [facility] [id number] [place] [address] Dec, Essential hypertension I10 and Bilateral acute serous otitis media, recurrence not specified H65.03 [facility] [id number] [place] [address] Dec, Essential hypertension I10 [place] [id number] [place] [address] Dec, Depressive disorder F32.9 [facility] [id number] [place] [address] Dec, Establishing care with new doctor, encounter for Z71.89 ; Acquired hypothyroidism E03.9 ; Essential hypertension I10 and Irritable bowel syndrome, unspecified type K58.9 [place] [address] [address] Dec, [place] [address] [address] Nov, Depressive disorder F32.9 [place] [address] [address] Oct, Depressive disorder F32.9 [place] [id number] [place] [address] September, Depressive disorder F32.9 [place] [facility] [id number] [place] [address] Aug, Depressive disorder F32.9 [facility] [id number] [place] [address] Jun, Depressive disorder F32.9 IMMUNIZATIONS No Known Immunizations SOCIAL HISTORY Never Assessed REASON FOR VISIT Transition of care (blood pressure)---DBennettRN PLAN OF CARE Activity Details Follow Up 6mo w me, needs WWE Reason: VITAL SIGNS Height 68 in 2017-02-14 Weight 196 lbs 2017-02-14 Temperature 98.5 degrees Fahrenheit 2017-02-14 Heart Rate 80 bpm 2017-02-14 Respiratory Rate 20 2017-02-14 BMI 29.80 kg/m2 2017-02-14 Blood pressure systolic 100 mmHg 2017-02-14 Blood pressure diastolic 66 mmHg 2017-02-14 MEDICATIONS Medication Instructions Dosage Frequency Start Date End Date Duration Status Lisinopril-Hydrochlorothiazide 20-12.5 MG Orally Once a day 1 tablet 24h Dec, Active RESULTS No Results PROCEDURES No Known procedures INSTRUCTIONS MEDICATIONS ADMINISTERED No Known Medications MEDICAL (GENERAL) HISTORY Type Description Date Medical History Hypothyroidism Medical History hypertension Surgical History cyst removed from shoulder 2009
--- OUTSIDE RECORDS SUMMARY | 2018-05-16 07:41 | XMS REPORT ---
Author Author Kareem ROSSANA Organization [facility] Address [address] [place] [address] Care Team Providers Care Flaring Machine Operator Name Role Phone swethaIsrael ROSSANA Unavailable PROBLEMS Type Condition ICD9-CM Code CBT14-GZ Code Onset Dates Condition Status SNOMED Code Problem Bilateral acute serous otitis media, recurrence not specified H65.03 Active 595078115 Problem Irritable bowel syndrome, unspecified type K58.9 Active 14152094 Problem Depressive disorder F32.9 Active 31974887 Problem Acquired hypothyroidism E03.9 Active 877331893 Problem Essential hypertension I10 Active 18620175 ALLERGIES No Information ENCOUNTERS Encounter Location Date Diagnosis [facility] [address] [address] Aug, [facility] [address] [address] Feb, Essential hypertension I10 and Chest pain, atypical R07.89 [facility] [id number] [place] [phone] Feb, Other chest pain R07.89 [facility] [address] [address] Feb, Essential hypertension I10 [facility] [address] [address] Jan, Essential hypertension I10 [facility] [address] [address] Oct, Essential hypertension I10 [facility] [id number] [place] [phone] September, Open bite of unspecified finger without damage to nail, initial encounter S61.259A and Encounter for immunization Z23 [facility] [id number] [place] [address] September, Essential hypertension I10 [facility] [id number] [place] [address] Jun, Depressive disorder F32.9 [facility] [id number] [place] [address] May, Depressive disorder F32.9 [facility] [id number] [place] [address] May, Depressive disorder F32.9 ; Acquired hypothyroidism E03.9 ; Essential hypertension I10 and Irritable bowel syndrome, unspecified type K58.9 [facility] [id number] [place] [address] May, Depressive disorder F32.9 [facility] [id number] [place] [address] Apr, [facility] [id number] [place] [address] Mar, Depressive disorder F32.9 [facility] [id number] [place] [phone] Feb, [facility] [id number] [place] [address] Feb, Depressive disorder F32.9 [facility] [id number] [place] [address] Jan, Depressive disorder F32.9 [facility] [id number] [place] [address] Dec, Essential hypertension I10 and Bilateral acute serous otitis media, recurrence not specified H65.03 [facility] [id number] [place] [address] Dec, Essential hypertension I10 [facility] [address] [place] [address] Dec, Depressive disorder F32.9 [place] [id number] [place] [address] Dec, Establishing care with new doctor, encounter for Z71.89 ; Acquired hypothyroidism E03.9 ; Essential hypertension I10 and Irritable bowel syndrome, unspecified type K58.9 [place] [id number] [place] [address] Dec, [place] [id number] [place] [address] Nov, Depressive disorder F32.9 [place] [id number] [place] [address] Oct, Depressive disorder F32.9 [place] [id number] [place] [address] September, Depressive disorder F32.9 [place] [id number] [place] [address] Aug, Depressive disorder F32.9 [place] [id number] [place] [address] Jun, Depressive disorder F32.9 IMMUNIZATIONS No Known Immunizations SOCIAL HISTORY Never Assessed REASON FOR VISIT med refill PLAN OF CARE VITAL SIGNS MEDICATIONS Medication [...]
--- OUTSIDE RECORDS SUMMARY | 2018-05-16 07:41 | XMS REPORT ---
Author Author JERROD GAINES Organization [facility] Address [address] [place] [address] Care Team Providers Care Information And Referral Director Name Role Phone JERROD GAINES Unavailable PROBLEMS Type Condition ICD9-CM Code [id number] Code Onset Dates Condition Status SNOMED Code Problem Bilateral acute serous otitis media, recurrence not specified H65.03 Active 007653038 Problem Acquired hypothyroidism E03.9 Active 563411572 Problem Depressive disorder F32.9 Active 61898247 Assessment Depressive disorder F32.9 Jan, Active 81698528 Problem Essential hypertension I10 Active 97630317 Problem Irritable bowel syndrome, unspecified type K58.9 Active 82590205 ALLERGIES Unknown Allergies SOCIAL HISTORY No smoking Hx information available PLAN OF CARE VITAL SIGNS MEDICATIONS Unknown Medications RESULTS No Results PROCEDURES Procedure Date Ordered Related Diagnosis Body Site Psychotherapy, patient &/family, 45 minutes, established patient Jan 26, 2016 IMMUNIZATIONS No Known Immunizations
--- OUTSIDE RECORDS SUMMARY | 2018-05-16 07:41 | XMS REPORT ---
Author JESSE Swenson [facility] [employer] Address Unknown Phone Unavailable Care Team Providers Care Claim Taker Name Role Phone JESSE POLANCO CP Unavailable Allergies No Known Allergies Problems Problem Type Condition Code Onset Dates Condition Status Problem Acquired hypothyroidism E03.9 Active Problem Essential hypertension I10 Active Problem Bilateral acute serous otitis media, recurrence not specified H65.03 Active Problem Irritable bowel syndrome, unspecified type K58.9 Active Problem Depressive disorder F32.9 Active Medications No Known Medications Vital Signs Date/Time: Feb 23, 2016 Blood Pressure Systolic 128 mmHg Cardiac Monitoring Heart Rate 66 bpm Height 68 in Blood Pressure Diastolic 82 mmHg Results No Known Results Summary Purpose eClinicalWorks Submission
--- OUTSIDE RECORDS SUMMARY | 2018-05-16 07:41 | XMS REPORT ---
Author ROSSANA Sauceda [facility] e[employer] Address Unknown Phone Unavailable Care Team Providers Care Fisher Diving Name Role Phone ROSSANA GONZALES CP Unavailable Allergies, Adverse Reactions, Alerts Substance Reaction Event Type N.K.D.A. Info Not Available Non Drug Allergy Problems Problem Type Condition Code Onset Dates Condition Status Problem Acquired hypothyroidism E03.9 Active Problem Essential hypertension I10 Active Problem Bilateral acute serous otitis media, recurrence not specified H65.03 Active Assessment Essential hypertension I10 Active Assessment Bilateral acute serous otitis media, recurrence not specified H65.03 Active Problem Irritable bowel syndrome, unspecified type K58.9 Active Problem Depressive disorder F32.9 Active Medications Medication Code System Code Instructions Start Date End Date Status Dosage Lisinopril-Hydrochlorothiazide [facility] [address]-76 20-12.5 MG Orally Once a day Dec 29, 2015 1 tablet Fish Oil [facility] [address]-27 1000 MG Orally Once a day 1 capsule Procedures Procedure Coding System Code Date DEPO MEDROL 40 MG/ML CPT-4 J1030 Jan 05, 2016 THER/PROPH/DIAG INJ, SC/IM CPT-4 47255 Jan 05, 2016 Office Visit, Est Pt., Level 4 CPT-4 46045 Jan 05, 2016 DEXAMETHASONE 4MG/ML (PER 1 MG) CPT-4 J1100 Jan 05, 2016 Vital Signs Date/Time: Jan 05, 2016 Cardiac Monitoring Heart Rate 80 bpm Weight 202 lbs Height 68 in BMI 30.71 Index Blood Pressure Diastolic 80 mmHg Blood Pressure Systolic 118 mmHg Results No Known Results Summary Purpose eClinicalWorks Submission
--- OUTSIDE RECORDS SUMMARY | 2018-05-16 07:41 | XMS REPORT ---
Author Author ROSSANA Serna Organization [facility] Address [address] [place] [address] Care Team Providers Care Train Dispatcher Name Role Phone ROSSANA Serna Unavailable PROBLEMS Type Condition ICD9-CM Code SUR84-PS Code Onset Dates Condition Status SNOMED Code Problem Depressive disorder F32.9 Active 79928196 Problem Acquired hypothyroidism E03.9 Active 219124589 Problem Essential hypertension I10 Active 28998033 Problem Generalized anxiety disorder F41.1 Active 47458717 Problem Acute stress reaction F43.0 Active 21057611 Problem Bilateral acute serous otitis media, recurrence not specified H65.03 Active 644666597 Problem Irritable bowel syndrome, unspecified type K58.9 Active 47017441 Problem Tobacco abuse Z72.0 Active 059389856 Problem Anxiety F41.9 Active 44152083 ALLERGIES No Information ENCOUNTERS Encounter Location Date Diagnosis [facility] [address] [address] Aug, Essential hypertension I10 ; Acute stress reaction F43.0 ; Generalized anxiety disorder F41.1 and Tobacco abuse Z72.0 [facility] [address] [place] [address] Feb, Essential hypertension I10 and Chest pain, atypical R07.89 [facility] [address] [place] [address] Feb, Other chest pain R07.89 [facility] [id number] [place] [address] Feb, Essential hypertension I10 [facility] [id number] [place] [address] Jan, Essential hypertension I10 [facility] [address] [place] [address] Oct, Essential hypertension I10 [facility] [id number] [place] [address] September, Open bite of unspecified finger without damage to nail, initial encounter S61.259A and Encounter for immunization Z23 [facility] [id number] [place] [address] September, Essential hypertension I10 [facility] [id number] [place] [address] Jun, Depressive disorder F32.9 [facility] [address] [address] May, Depressive disorder F32.9 [facility] [id number] [place] [address] May, Depressive disorder F32.9 ; Acquired hypothyroidism E03.9 ; Essential hypertension I10 and Irritable bowel syndrome, unspecified type K58.9 [facility] [id number] [place] [address] May, Depressive disorder F32.9 [facility] [id number] [place] [address] Apr, [facility] [id number] [place] [address] Mar, Depressive disorder F32.9 [facility] [id number] [place] [address] Feb, [facility] [id number] [place] [address]- [address] Feb, Depressive disorder F32.9 [facility] [id number] [place] [address] Jan, Depressive disorder F32.9 [facility] [id number] [place] [address] Dec, Essential hypertension I10 and Bilateral acute serous otitis media, recurrence not specified H65.03 [facility] [id number] [place] [address] Dec, Essential hypertension I10 [facility] [id number] [place] [address] Dec, Depressive disorder F32.9 [facility] [id number] [place] [address] Dec, Establishing care with new doctor, encounter for Z71.89 ; Acquired hypothyroidism E03.9 ; Essential hypertension I10 and Irritable bowel syndrome, unspecified type K58.9 [facility] [id number] [place] [address] Dec, [facility] [id number] [place] [address] Nov, Depressive disorder F32.9 [facility] [id number] [place] [address]- [address] Oct, Depressive disorder F32.9 [facility] [id number] [place] [address] September, Depressive disorder F32.9 [facility] [id number] [place] [address] Aug, Depressive disorder F32.9 [facility] [id number] [place] [address] Jun, Depressive disorder F32.9 IMMUNIZATIONS No Known Immunizations SOCIAL HISTORY Never Assessed REASON FOR VISIT Blood Pressure Check - RYLAN Vines, Has had chest pressure and burning x2 days, Worse today PLAN OF CARE VITAL SIGNS Height 68 in 2017-02-10 Heart Rate 72 bpm 2017-02-10 Blood pressure systolic 130 mmHg 2017-02-10 Blood pressure diastolic 82 mmHg 2017-02-10 MEDICATIONS Medication Instructions Dosage Frequency Start Date End Date Duration Status Lisinopril-Hydrochlorothiazide 20-12.5 MG Orally Once a day 1 tablet 24h Dec, Active RESULTS No Results PROCEDURES Procedure Date Ordered Result Body Site No Charge Feb 10, 2017 INSTRUCTIONS MEDICATIONS ADMINISTERED No Known Medications MEDICAL (GENERAL) HISTORY Type Description Date Medical History Hypothyroidism Medical History hypertension Surgical History cyst removed from shoulder 2009
--- OUTSIDE RECORDS SUMMARY | 2018-05-16 07:41 | XMS REPORT ---
Author Author HASMUKH FENTON Organization [facility] Address [address] [place] [address] Care Team Providers Care Ceramic Worker Name Role Phone HASMUKH FENTON Unavailable PROBLEMS Type Condition ICD9-CM Code GFQ00-XL Code Onset Dates Condition Status SNOMED Code Problem Depressive disorder F32.9 Active 04614559 Problem Acquired hypothyroidism E03.9 Active 989033795 Problem Essential hypertension I10 Active 49155733 Problem Generalized anxiety disorder F41.1 Active 10326652 Problem Acute stress reaction F43.0 Active 82130545 Problem Bilateral acute serous otitis media, recurrence not specified H65.03 Active 247492162 Problem Irritable bowel syndrome, unspecified type K58.9 Active 45331318 Problem Tobacco abuse Z72.0 Active 781709172 Problem Anxiety F41.9 Active 24737584 ALLERGIES No Known Allergies ENCOUNTERS Encounter Location Date Diagnosis [facility] [address] [address] Aug, Essential hypertension I10 ; Acute stress reaction F43.0 ; Generalized anxiety disorder F41.1 and Tobacco abuse Z72.0 [facility] [id number] [place] [address] Feb, Essential hypertension I10 and Chest pain, atypical R07.89 [facility] [id number] [place] [address] Feb, Other chest pain R07.89 [facility] [address] [address] Feb, Essential hypertension I10 [facility] [id number] [place] [address]51- [address] Jan, Essential hypertension I10 [facility] [address] [address] Oct, Essential hypertension I10 [facility] [id number] [place] [address] September, Open bite of unspecified finger without damage to nail, initial encounter S61.259A and Encounter for immunization Z23 [facility] [id number] [place] [address]- [address] September, Essential hypertension I10 [facility] [address] [address] Jun, Depressive disorder F32.9 [facility] [address] [address] May, Depressive disorder F32.9 [facility] [id number] [place] [address] May, Depressive disorder F32.9 ; Acquired hypothyroidism E03.9 ; Essential hypertension I10 and Irritable bowel syndrome, unspecified type K58.9 [facility] [id number] [place] [address] May, Depressive disorder F32.9 [facility] [id number] [place] [address] Apr, [facility] [id number] [place] [address]- 3[address] Mar, Depressive disorder F32.9 [facility] [id number] [place] [address] Feb, [facility] [id number] [place] [address] 8[address]- [address] Feb, Depressive disorder F32.9 [facility] [id number] [place] [address]- [address] Jan, Depressive disorder F32.9 [facility] [id number] [place] [address] Dec, Essential hypertension I10 and Bilateral acute serous otitis media, recurrence not specified H65.03 [facility] [id number] [place] [address] Dec, Essential hypertension I10 [facility] [id number] [place] [address] 34[address]- [address]164 Dec, Depressive disorder F32.9 [place] [address] [address] Dec, Establishing care with new doctor, encounter for Z71.89 ; Acquired hypothyroidism E03.9 ; Essential hypertension I10 and Irritable bowel syndrome, unspecified type K58.9 [place] [address] [address] Dec, [place] [place] [address] [address] Nov, Depressive disorder F32.9 [facility] [id number] [place] [address]31- 76[address] Oct, Depressive disorder F32.9 [place] [address] [address] September, Depressive disorder F32.9 [place] [place] [id number] [place] [address] 6[address] Aug, Depressive disorder F32.9 [place] [id number] [place] [address]- 25[address] Jun, Depressive disorder F32.9 IMMUNIZATIONS No Known Immunizations SOCIAL HISTORY Never Assessed REASON FOR VISIT chest pressure for the past 2 days. pt reports the pressure is in the center of her ches. some numbness in left shoulder and neck. also some nausea and belching. denies jaw, back, and arm pain. denies diaphoresis. the pain is not reproducable upon palpation. kbullardrn, pressure doesnt come and go...but it gets worse then better. pressure is constantly there. PLAN OF CARE Activity Details Follow Up prn Reason: VITAL SIGNS Height 68 in 2017-02-10 Weight 192.2 lbs 2017-02-10 Temperature 97.7 degrees Fahrenheit 2017-02-10 Heart Rate 72 bpm 2017-02-10 Respiratory Rate 20 2017-02-10 BMI 29.22 kg/m2 2017-02-10 Blood pressure systolic 134 mmHg 2017-02-10 Blood pressure diastolic 76 mmHg 2017-02-10 MEDICATIONS Medication Instructions Dosage Frequency [...]
--- OUTSIDE RECORDS SUMMARY | 2018-05-16 07:41 | XMS REPORT ---
Author Author JERROD GAINES [facility] Address [address] [place] [address] Care Team Providers Care Garbage Pick Up Worker Name Role Phone JERROD GAINES Unavailable PROBLEMS Type Condition ICD9-CM Code JCW59-II Code Onset Dates Condition Status SNOMED Code Problem Bilateral acute serous otitis media, recurrence not specified H65.03 Active 157931037 Problem Irritable bowel syndrome, unspecified type K58.9 Active 95078004 Problem Depressive disorder F32.9 Active 32773125 Problem Acquired hypothyroidism E03.9 Active 272258914 Problem Essential hypertension I10 Active 37115579 ALLERGIES Unknown Allergies SOCIAL HISTORY No smoking Hx information available PLAN OF CARE Activity Details Follow Up 4 Weeks Reason:BH F/U VITAL SIGNS MEDICATIONS Unknown Medications RESULTS No Results PROCEDURES Procedure Date Ordered Related Diagnosis Body Site Psychotherapy, patient &/family, 45 minutes, established patient Jun 07, 2016 IMMUNIZATIONS No Known Immunizations
[2018-05-16 07:45] VITALS: BP 113/78
[2018-05-16] MEDS ORDERED: ceFAZolin 2 GM IV Premixed 50 ML IV ONE (07:45)
[2018-05-16] MEDS ORDERED: LIDOCAINE 1% INJ 20 ML 20 ML VIAL INJ ONE (08:15)
[2018-05-16] MEDS: LACTATED RINGERS 1,000 ML IV PRN ×2 (10:00→11:25)
[2018-05-16] MEDS ORDERED: DEXAMETHASONE 10 MG/ML (DECADRON) 1 ML VIAL ONE (10:30)
[2018-05-16] MEDS ORDERED: LIDOCAINE/EPI 1%-1:200,000 (XYLOCAINE) 10 ML VIAL ONE (10:30)
[2018-05-16] MEDS ORDERED: ONDANSETRON 4 MG/2 ML (SDV) Z0FRAN ONE (10:30)
[2018-05-16] MEDS ORDERED: MIDAZOLAM 2 MG/2 ML (VERSED) VIAL ONE (10:30)
[2018-05-16] MEDS ORDERED: proPOfol 200 MG/20 ML (DIPRIVAN) VIAL IV ONE (10:30)
[2018-05-16] MEDS ORDERED: fentaNYL INJECTION 100 MCG/2 ML AMP ONE (10:30)
[2018-05-16] MEDS ORDERED: LIDOCAINE PF 2% 5 ML (XYLOCAINE) VIAL ONE (10:30)
[2018-05-16] MEDS ORDERED: LIDOCAINE/EPI 1%-1:100,000 (XYLOCAINE) 20ML ONE (10:30)
--- NOTE | 2018-05-16 11:03 | Progress Note-Pre Operative ---
Pre-Operative Progress Note H&P Reviewed The H&P was reviewed, patient examined and no changes noted. Time Seen by Provider: 11:56 Date H&P Reviewed: May 16, 2018 Time H&P Reviewed: 11:57 Pre-Operative Diagnosis: Left Breast DCIS ELBA ABBOTT DO May 16, 2018 11:03
[2018-05-16] MEDS ORDERED: SEVOFLURANE (ULTANE) 15 ML INHAL SOLN ONE (11:37)
--- NOTE | 2018-05-16 11:49 | Progress Note-Post Operative ---
Post-Operative Progess Note Surgeon (s)/Housecleaner Floor (s) Surgeon ELBA ABBOTT DO Housecleaner Floor: Adrien Wasserman Pre-Operative Diagnosis Left Breast DCIS Post-Operative Diagnosis Same pending path Procedure & Operative Findings Date of Procedure 05/16/18 Procedure Performed/Findings Partial Mastectomy with needle localization Anesthesia Type GET Estimated Blood Loss Estimated blood loss (mL): scant Specimens/Packing Specimens Removed left breast tissue with needle left breast tissue superior to first specimen ELBA ABBOTT DO May 16, 2018 11:49
[2018-05-16] MEDS ORDERED: ACHD5005 PO (11:52)
--- NOTE | 2018-05-16 11:54 | Discharge Inst-Surgical ---
Discharge Inst-Surgical Depart Medication/Instructions New, Converted or Re-Newed RX: RX Given to Pt/Family Patient Instructions Follow up Appt: Make appointment for 1 week. Instructions: No lifting greater than 10 pounds. No strenuous activity. May shower in 24 hours, no tub bath or soaking. Use incentive spirometer at home as directed. No Smoking Skin/Wound Care: May remove bandages in am. You need to leave the Dermabond on over incision it will fall off on its own. Symptoms to Report: Appetite Changes, Extremity Discoloration, Numbness/Tingling, Swelling Increased , Bleeding Excessive, Eyesight Changes, Pain Increased, Urine Color Change, Constipation(Persistent), Fever over 101 degree F, Pain/Pressure in chest, Urinating Difficulty, Cough Up/Vomit Blood, Heart Beat Irreg/Pounding, Pain/ Pressure in jaw, Vaginal Bleeding Increase, Cramps in feet or legs, Lightheadedness, Pain/Pressure in shoulder, Diarrhea(Persistent), Memory Changes Suddenly, Questions/Concerns, Weight gain consecutive days, Dizziness/ Fainting, Nausea/Vomiting, Shortness of Breath, Weight gain over 2 pounds If questions or concerns contact your physician Or seek help at emergency department. Activity Activity as Tolerated: Yes Activity Instructions: Avoid Stress to Incision Driving Instructions: No Driving/Refer to Dr. Joyce Discharge Diet: No Restrictions Diet After 24 Hours: Clear Liquid if Nauseous If Any Problems/Questions/Issu: Contact Your Physician Skin/Wound Care Infection Signs and Symptoms: Increased Redness, Foul Odor of Wound, Increased Drainage, Skin Itchy or Has a Rash, Increased Swelling, Temperature Above 101 F Wound Care Comment: Wear tight fitting sports bra all day (24 hours) for next week, except to shower Bathing Instructions: Shower Stitches/Linda/Dermabond Dis: Dermabond Ice Pack: Ice On and Off Site (as needed for pain) ELBA ABBOTT DO May 16, 2018 11:54
[2018-05-16] MEDS ORDERED: morphine INJ 10 MG/ML 1ML (SYR OR VIAL) IVP ONE (12:15)
--- NOTE | 2018-05-16 12:27 | Anesthesia-General Post-Op ---
General Patient Condition Mental Status/LOC: Same as Preop Cardiovascular: Satisfactory Nausea/Vomiting: Absent Respiratory: Satisfactory Pain: Controlled Complications: Absent Post Op Complications Complications None Follow Up Care/Instructions Patient Instructions None needed. Anesthesia/Patient Condition Patient Condition Patient is doing well, no complaints, stable vital signs, no apparent adverse anesthesia problems. No complications reported per nursing. ROBYN RAMIREZ CRNA May 16, 2018 12:27
--- NOTE | 2018-05-16 12:28 | Diagnostic Imaging Report ---
INDICATION: Left breast carcinoma, status post lumpectomy. FINDINGS: Specimen radiograph from the left breast demonstrates a hookwire located within the specimen. The localizer clip is also in the specimen. There are numerous malignant-appearing microcalcifications adjacent to the hookwire within the specimen at the coordinates of D-10 and 11 as well as C-11 and B-11. There are microcalcifications at the coordinates of E-11, as well. Calcifications at B-11 do extend to the margin of the specimen. IMPRESSION: Malignant microcalcifications, hookwire and clip are located within the specimen, as described. Dictated by: Dictated on workstation # [id number]
--- NOTE | 2018-05-16 12:30 | Diagnostic Imaging Report ---
INDICATION: Left breast carcinoma. PROCEDURE: The patient presents for ultrasound-guided needle localization prior to lumpectomy. FINDINGS: The patient was brought to the procedure room and placed on the bed in the supine position. Ultrasound imaging over the left breast was performed to evaluate appropriate entry site. The left breast was then prepped and draped in the usual sterile fashion. A small amount of 1% lidocaine was utilized for local anesthesia. Localizing needle was advanced through the hypoechoic, irregular lesion at the 3 o'clock location of the left breast, 7 cm from the nipple. Hookwire was then placed through the needle and deployed. The needle was then removed. The hookwire was affixed to the patient's skin. Follow-up mammography was performed. The patient tolerated procedure well and was sent to Same Day Surgery in satisfactory condition. IMPRESSION: Successful ultrasound-guided hookwire placement into the hypoechoic mass at the 3 o'clock location of the left breast, as described. Dictated by: Dictated on workstation # [id number]
--- NOTE | 2018-05-16 12:34 | Diagnostic Imaging Report ---
INDICATION: Left breast carcinoma. Patient is status post ultrasound-guided hookwire localization. EXAM: 2-D, ML and exaggerated CC views of the left breast were obtained post hookwire placement. FINDINGS: The hookwire was placed via lateral approach. The thick part of the wire is adjacent to the cluster of microcalcifications in the lateral left breast. Calcifications are immediately anterior to the thickened portion of the hookwire. There is localizer clip also located anterior to the thick portion of the hookwire. IMPRESSION: Hookwire placement, as described. Dictated by: Dictated on workstation # [id number]
[2018-05-16 12:55] VITALS: BP 107/65
[2018-05-16 13:25] VITALS: BP 114/67
[2018-05-16 13:55] VITALS: BP 105/64
--- NOTE | 2018-05-17 02:58 | OPERATIVE REPORT ---
DATE OF SERVICE: PREOPERATIVE DIAGNOSIS: Left breast ductal carcinoma in situ. POSTOPERATIVE DIAGNOSIS: Left breast ductal carcinoma in situ, pending pathology. PROCEDURE: Left partial mastectomy with needle localization. SURGEON: Faheem Crowley DO JAVA SPRING DEVELOPER: None. ANESTHESIA: General endotracheal tube. BLOOD LOSS: Scant. FLUIDS: Per anesthesia. SPECIMEN: Left breast tissue with a guidewire as well as a further portion of tissue. INDICATION FOR PROCEDURE: The patient is a 47-year-old female who had calcifications seen on mammogram. Biopsy done showed DCIS and needed a wide excision of this area. FINDINGS: The patient had a needle localization done to go to the spot of previous biopsy as well as where the calcifications were. Once this was performed, she was then taken to the operating room where we performed basically a left partial mastectomy this was also called left lumpectomy or wide excision with needle localization. The calcifications and needle were in the specimen sent to radiology and then sent to pathology. PROCEDURE NOTE: After informed consent was obtained, the patient was first sent to radiology to have a needle localization performed. She was then brought to the operating room, placed on the table in supine position. She was sterilely prepped and draped in normal fashion. The wire was coming out at about the 3 o'clock position, about 5 cm from the areola, almost to the mid axillary line. Elected to do a radial incision along the 3 o'clock line infiltrated the incision with local, then made an incision with #15 blade, carried down through the skin into subcutaneous tissue, then deepened down through subcutaneous tissue with Bovie electrocautery, dissecting superiorly and inferiorly to create some flaps, grasping the needle and breast tissue and then dissecting around this with a Bovie electrocautery going along the 3 o'clock line taken out tissue, able to get around the guidewire completely and remove the tissue en bloc. We then placed sutures, one short suture was placed at the superior portion of the specimen, one long suture was then placed at about the 12 o'clock position with a needle coming out the 3 o'clock position and then 2 sutures were placed at the most posterior aspect or base of this specimen. This was then passed off the table, felt to be one other area that appeared to come off at about the 12 o'clock position, but a little bit more posterior. This was grasped with Allis and taken out. Hemostasis obtained using Bovie electrocautery, copiously irrigated with sterile water. No bleeding at the end of the case and at this point, we then elected to close the incision closing with a #4-0 undyed Monocryl in subcuticular fashion. Area was cleaned and dried. Dermabond placed as well as fluff dressing and a tight sports bra for pressure. She tolerated the procedure well. Sponge, instrument and needle count correct at the end of the case and she was transferred to recovery room in stable condition. Job ID: [id number] DocumentID: [id number] Dictated Date: 05/16/2018 14:58:03 Baseball Club Manager Date: 05/17/2018 02:57:07 Dictated By: FAHEEM CROWLEY DO
== END 2018-05-16 14:05 | disposition home or self-care (01) ==
LOC: RAD 07:28
PROVIDERS: ATTEND Surgery
DX: D05.12 Intraductal carcinoma in situ of left breast (principal); I10 Essential (primary) hypertension; F17.210 Nicotine dependence, cigarettes, uncomplicated; E66.9 Obesity, unspecified; Z68.33 Body mass index [BMI] 33.0-33.9, adult; Z79.899 Other long term (current) drug therapy
CPT/HCPCS: 19285; 76098; 76942; 84703; 87081; 88305; 88307; 94664

== ENCOUNTER 2018-08-30 12:46 | Outpatient (RCR) | payer MEDICAID | END 2018-09-12 | disposition home or self-care (01) | LOC: ONC 12:46 | PROVIDERS: ATTEND Internal Medicine Hematology & Oncology | DX: Z51.0 Encounter for antineoplastic radiation therapy (principal); D05.12 Intraductal carcinoma in situ of left breast; I10 Essential (primary) hypertension; F17.210 Nicotine dependence, cigarettes, uncomplicated; E66.9 Obesity, unspecified; Z68.33 Body mass index [BMI] 33.0-33.9, adult; Z79.899 Other long term (current) drug therapy | CPT/HCPCS: 77290; 77295; 77300; 77307; 77334; 77336; 77417; 77470; 99204; 99213 ==

== ENCOUNTER → 2018-08-30 | Outpatient (CLI) | payer MEDICAID ==
[~2018-08-30] MED LIST changes: +ACHD5005 PO
== END ==
LOC: RAD 13:38
PROVIDERS: ATTEND Internal Medicine Hematology & Oncology
DX: M79.605 Pain in left leg (principal)

== ENCOUNTER 2018-10-04 13:15 | Outpatient (RCR) | payer MEDICAID ==
[2018-10-04 13:40] LABS: BASOPHILS % (AUTO) 0 % (0-10); EOSINOPHILS # (AUTO) 0.1 10^3/uL (0.0-0.3); EOSINOPHILS % (AUTO) 1 % (0-10); HEMATOCRIT 42 % (35-52); HEMOGLOBIN 14.8 G/DL (11.5-16.0); LYMPHOCYTES % (AUTO) 7 % (12-44); MEAN CORPUSCULAR HEMOGLOBIN 31 PG (25-34); MEAN CORPUSCULAR HGB CONC 35 G/DL (32-36); MEAN CORPUSCULAR VOLUME 88 FL (80-99); MEAN PLATELET VOLUME 9.4 FL (7.4-10.4); MONOCYTES % (AUTO) 7 % (0-12); NEUTROPHILS # (AUTO) 12.1 X 10^3 (1.8-7.8); NEUTROPHILS % (AUTO) 85 % (42-75); PLATELET COUNT 328 10^3/uL (130-400); RED CELL DISTRIBUTION WIDTH 13.6 % (10.0-14.5); WHITE BLOOD COUNT 14.3 10^3/uL (4.3-11.0)
[2018-10-04 13:56] LABS: ALANINE AMINOTRANSFERASE 12 U/L (0-55); ALBUMIN 4.4 GM/DL (3.2-4.5); ALKALINE PHOSPHATASE 59 U/L (40-136); BILIRUBIN,TOTAL 0.5 MG/DL (0.1-1.0); BUN/CREATININE RATIO 13; CALCIUM 9.8 MG/DL (8.5-10.1); CARBON DIOXIDE 23 MMOL/L (21-32); CHLORIDE 103 MMOL/L (98-107); CREATININE SERUM 0.89 MG/DL (0.60-1.30); GFR ESTIMATED > 60; GLUCOSE 99 MG/DL (70-105); POTASSIUM 3.9 MMOL/L (3.6-5.0); SODIUM 136 MMOL/L (135-145); TOTAL PROTEIN 7.7 GM/DL (6.4-8.2)
== END 2018-12-25 | disposition home or self-care (01) ==
LOC: ONC 13:15
PROVIDERS: ATTEND Internal Medicine Hematology & Oncology
DX: D05.12 Intraductal carcinoma in situ of left breast (principal); I10 Essential (primary) hypertension; F17.210 Nicotine dependence, cigarettes, uncomplicated; E66.9 Obesity, unspecified; Z68.33 Body mass index [BMI] 33.0-33.9, adult; Z79.899 Other long term (current) drug therapy
CPT/HCPCS: 36415; 80053; 85025; 99213

== ENCOUNTER 2019-01-02 11:07 | Outpatient (RCR) | payer MEDICAID | END 2019-04-02 | disposition home or self-care (01) | LOC: ONC 11:07 | PROVIDERS: ATTEND Internal Medicine Hematology & Oncology | DX: D05.12 Intraductal carcinoma in situ of left breast (principal); I10 Essential (primary) hypertension; F17.210 Nicotine dependence, cigarettes, uncomplicated; E66.9 Obesity, unspecified; Z68.33 Body mass index [BMI] 33.0-33.9, adult; Z79.899 Other long term (current) drug therapy | CPT/HCPCS: 99213 ==

== ENCOUNTER → 2019-01-09 | Outpatient (CLI) | payer MEDICAID ==
--- NOTE | 2019-01-10 17:40 | Diagnostic Imaging Report ---
INDICATION: Routine screening. COMPARISON: Comparison is made with prior mammogram from 01/31/2018 and left mammogram from 04/18/2018. 2-D and 3-D bilateral screening mammography was performed. The current study was also evaluated with a Computer Aided Detection (CAD) system. 3-D tomosynthesis was also performed and reviewed. FINDINGS: Scattered fibroglandular densities are identified bilaterally. Postlumpectomy changes in left breast are again noted. No new mass or malignant-appearing microcalcifications are seen. The axillae are unremarkable. IMPRESSION: No mammographic features suspicious for malignancy are identified. ACR BI-RADS Category 2: Benign findings. Result letter will be mailed to the patient. Note: At least 10% of breast cancer is not imaged by mammography. Dictated by: Dictated on workstation # [id number]
== END ==
LOC: RAD 14:33
PROVIDERS: ATTEND Internal Medicine Hematology & Oncology
DX: Z12.31 Encounter for screening mammogram for malignant neoplasm of breast (principal); D05.12 Intraductal carcinoma in situ of left breast; Z98.890 Other specified postprocedural states
CPT/HCPCS: 77067

== ENCOUNTER 2019-07-04 09:44 | Outpatient (RCR) | payer SELFPAY ==
[~2019-07-04 09:44] MED LIST changes: -LISI1TAB10 PO; +LISI1TAB26 PO
== END 2019-10-02 | disposition home or self-care (01) ==
LOC: ONC 09:44
PROVIDERS: ATTEND Internal Medicine Hematology & Oncology
DX: D05.12 Intraductal carcinoma in situ of left breast (principal); I10 Essential (primary) hypertension; E03.9 Hypothyroidism, unspecified; F17.210 Nicotine dependence, cigarettes, uncomplicated; Z79.899 Other long term (current) drug therapy; Z80.1 Family history of malignant neoplasm of trachea, bronchus and lung; Z80.3 Family history of malignant neoplasm of breast; Z80.52 Family history of malignant neoplasm of bladder
CPT/HCPCS: 99213

== ENCOUNTER 2020-02-05 10:20 | Outpatient (RCR) | payer SELFPAY | END 2020-05-05 | LOC: CARD 10:20 | PROVIDERS: ATTEND Pediatrics | DX: R00.2 Palpitations (principal) | CPT/HCPCS: 93225; 93226 ==

== ENCOUNTER → 2020-04-22 | Outpatient (CLI) | payer SELFPAY ==
[2020-04-22 16:02] LABS: BASOPHILS % (AUTO) 1 % (0-10); EOSINOPHILS # (AUTO) 0.2 10^3/uL (0.0-0.3); EOSINOPHILS % (AUTO) 2 % (0-10); HEMATOCRIT 42 % (35-52); HEMOGLOBIN 13.9 g/dL (11.5-16.0); LYMPHOCYTES # (AUTO) 1.6 10^3/uL (1.0-4.0); LYMPHOCYTES % (AUTO) 20 % (12-44); MEAN CORPUSCULAR HEMOGLOBIN 30 pg (25-34); MEAN CORPUSCULAR HGB CONC 33 g/dL (32-36); MEAN CORPUSCULAR VOLUME 91 fL (80-99); MEAN PLATELET VOLUME 9.1 fL (9.0-12.2); MONOCYTES # (AUTO) 0.5 10^3/uL (0.0-1.0); MONOCYTES % (AUTO) 6 % (0-12); NEUTROPHILS # (AUTO) 5.7 10^3/uL (1.8-7.8); NEUTROPHILS % (AUTO) 72 % (42-75); PLATELET COUNT 324 10^3/uL (130-400)
[2020-04-22 16:35] LABS: ALANINE AMINOTRANSFERASE 13 U/L (0-55); ALKALINE PHOSPHATASE 45 U/L (40-136); BILIRUBIN,TOTAL 0.2 MG/DL (0.1-1.0); BUN/CREATININE RATIO 15; CALCIUM 9.3 MG/DL (8.5-10.1); CARBON DIOXIDE 25 MMOL/L (21-32); CHLORIDE 104 MMOL/L (98-107); CREATININE SERUM 0.95 MG/DL (0.60-1.30); GFR ESTIMATED > 60; GLUCOSE 123 MG/DL (70-105); POTASSIUM 3.4 MMOL/L (3.6-5.0); SODIUM 139 MMOL/L (135-145); TOTAL PROTEIN 7.1 GM/DL (6.4-8.2)
== END ==
LOC: ONC 15:26 → EDSTATUS 15:59
PROVIDERS: ATTEND Internal Medicine Hematology & Oncology
DX: D05.12 Intraductal carcinoma in situ of left breast (principal); Z92.3 Personal history of irradiation
CPT/HCPCS: 80053; 85025; G0463; 99213

== ENCOUNTER → 2020-10-07 | Outpatient (CLI) | payer OTHER ==
--- NOTE | 2020-10-07 14:33 | Diagnostic Imaging Report ---
INDICATION: Palpable lump left breast. COMPARISON: Correlation is made to the prior mammograms from 01/09/2019 and 01/31/2018. TECHNIQUE: 2D and 3D bilateral diagnostic mammography was performed with CAD. A BB marker was placed at the area of palpable abnormality in the upper left breast. FINDINGS: Scattered fibroglandular densities are identified bilaterally. Post lumpectomy changes in the upper outer left breast at posterior depth appear stable. No discrete mass or malignant appearing microcalcifications are seen. There are benign calcifications bilaterally. The axillae are unremarkable. IMPRESSION: No mammographic features suspicious for malignancy are identified. Specifically, no abnormality at the area of palpable abnormality in the superior left breast is identified. Even so, directed sonographic interrogation of this area is recommended and will be performed today. ACR BI-RADS Category 0: Incomplete. (Needs additional imaging evaluation). Result letter will be mailed to the patient. Note: At least 10% of breast cancer is not imaged by mammography. Dictated by: Dictated on workstation # [id number]
--- NOTE | 2020-10-07 18:10 | Diagnostic Imaging Report ---
INDICATION: Left breast lump. Correlation is made with diagnostic mammogram earlier the same day. Interrogation of the area of lump in the superior left breast was performed. No sonographic abnormality is identified. No solid or cystic mass is detected. IMPRESSION: BI-RADS Category 1 No sonographic abnormality is identified. Continued close clinical and self breast exams recommended to confirm stability of the area of palpable abnormality in the superior left breast. ACR BI-RADS Category 1: Negative. Result letter will be mailed to the patient. Note: At least 10% of breast cancer is not imaged by mammography. Dictated by: Dictated on workstation # [id number]
== END ==
LOC: RAD 12:45
PROVIDERS: ATTEND Nurse Practitioner
DX: N63.20 Unspecified lump in the left breast, unspecified quadrant (principal); Z98.890 Other specified postprocedural states
CPT/HCPCS: 76642; 77066; G0279; 77062

== ENCOUNTER 2020-12-02 09:51 | Outpatient (RCR) | payer SELFPAY ==
[2020-12-02 10:04] LABS: BASOPHILS # (AUTO) 0.1 10^3/uL (0.0-0.1); BASOPHILS % (AUTO) 1 % (0-10); EOSINOPHILS # (AUTO) 0.2 10^3/uL (0.0-0.3); EOSINOPHILS % (AUTO) 3 % (0-10); HEMATOCRIT 45 % (35-52); HEMOGLOBIN 14.9 g/dL (11.5-16.0); LYMPHOCYTES # (AUTO) 1.8 10^3/uL (1.0-4.0); LYMPHOCYTES % (AUTO) 24 % (12-44); MEAN CORPUSCULAR HEMOGLOBIN 31 pg (25-34); MEAN CORPUSCULAR HGB CONC 33 g/dL (32-36); MEAN CORPUSCULAR VOLUME 92 fL (80-99); MEAN PLATELET VOLUME 9.3 fL (9.0-12.2); MONOCYTES # (AUTO) 0.7 10^3/uL (0.0-1.0); MONOCYTES % (AUTO) 10 % (0-12); NEUTROPHILS # (AUTO) 4.7 10^3/uL (1.8-7.8); NEUTROPHILS % (AUTO) 63 % (42-75); PLATELET COUNT 333 10^3/uL (130-400); WHITE BLOOD COUNT 7.4 10^3/uL (4.3-11.0)
[2020-12-02 10:22] LABS: BILIRUBIN,TOTAL 0.4 MG/DL (0.1-1.0); CALCIUM 9.6 MG/DL (8.5-10.1); CREATININE SERUM 0.93 MG/DL (0.60-1.30); POTASSIUM 3.6 MMOL/L (3.6-5.0); TOTAL PROTEIN 7.3 GM/DL (6.4-8.2)
== END 2021-03-02 | disposition home or self-care (01) ==
LOC: ONC 09:51
PROVIDERS: ATTEND Internal Medicine Hematology & Oncology
DX: D05.12 Intraductal carcinoma in situ of left breast (principal); I10 Essential (primary) hypertension; E03.9 Hypothyroidism, unspecified; E66.01 Morbid (severe) obesity due to excess calories; Z90.12 Acquired absence of left breast and nipple; Z92.3 Personal history of irradiation; Z79.810 Long term (current) use of selective estrogen receptor modulators (SERMs); Z72.0 Tobacco use
CPT/HCPCS: 80053; 85025; G0463; 99213

== ENCOUNTER 2021-02-22 05:01 | Emergency (ER) | payer SELFPAY ==
[~2021-02-22] VITALS: Ht 172.7 cm; Wt 104.3 kg
[2021-02-22] MEDS ORDERED: ASPIRIN 81 MG CHEW (CHILDREN'S ASA) PO ONE (05:15)
[2021-02-22] MEDS ORDERED: NITROGLYCERIN 0.4 MG SL TABS BTL 25'S SL PRN (05:15)
--- NOTE | 2021-02-22 05:22 | ED Chest Pain ---
General Chief Complaint: Chest Pain Stated Complaint: PAIN/PRESSURE IN CHEST/L SIDE Source: patient (MARIA LUISA GOOD DO) History of Present Illness Date Seen by Provider: Feb 22, 2021 Time Seen by Provider: 05:07 Initial Comments PT ARRIVES VIA POV FROM HOME C/O LEFT SIDED PAIN SINCE SOMETIME YESTERDAY AFTERNOON PAIN IS FROM LEFT LATERAL NECK/BELOW LEFT EAR, ALL THE WAY DOWN HER LEFT SIDE--DOWN LEFT SHOULDER, LEFT CHEST--ANTERIOR AND POSTERIOR, LEFT ABDOMEN DOWN TO LLQ, LEFT HIP AND ALL WAY AROUND TO HER LEFT LOWER BACK C/O SHORTNESS OF BREATH AND PAIN WITH BREATHING SYMPTOMS WORSE WITH LAYING FLAT, IMPROVED WITH SITTING UPRIGHT HAS NOT TAKEN ANYTHING FOR PAIN ANY ANY TIME PAIN IS CONSTANT, RATES 8/10 + SWEATS + MILD DIZZINESS NO SYNCOPE NO NAUSEA/VOMITING NO COUGH NO FEVER NO SWELLING IN LEGS/ FEET NO HISTORY OF SIMILAR NO HISTORY OF CARDIAC PROBLEMS, BUT DOES HAVE HTN HAS NOT TAKEN ANYTHING FOR PAIN AT ANY TIME PT HAS NOT HAD COVID-19 VACCINE MUCH LATER REPORTS THAT SHE AND BOTH TESTED + FOR COVID-19 ON 12/11/20--NO TREATMENT PT SMOKES AT LEAST 1/2 PPD PT WAS DX WITH BREAST CANCER IN 2018--S/P LEFT BREAST LUMPECTOMY AND RADIATION, IS NOW ON TAMOXIFEN LMP--NOW, S/P BTL PCP: DR. Noé ENCISO (MARIA LUISA GOOD DO) Allergies and Home Medications Allergies Coded Allergies: No Known Drug Allergies (Unverified , 04/18/18) Patient Home Medication List Home Medication List Reviewed: Yes (NURA HELTON MD) Hydrocodone Bit/Acetaminophen (Lortab 5 Mg Tablet) 1 Tab Tab, 1 TAB PO Q6H PRN for PAIN-MODERATE Prescribed by: ELBA ABBOTT on 05/16/18 1152 Lisinopril/Hydrochlorothiazide (Lisinopril-Hctz 20-25 mg Tab) 1 Each Tablet, 1 EACH PO DAILY, (Reported) Entered as Reported by: THEA GARG on 05/11/18 1245 Review of Systems Review of Systems Constitutional: see HPI, diaphoresis, dizziness EENTM: No Symptoms Reported Respiratory: See HPI; Denies Cough; Shortness of Air Cardiovascular: See HPI, Chest Pain; Denies Edema; Lightheadedness; Denies Palpitations, Denies Syncope Gastrointestinal: See HPI, Abdominal Pain; Denies Nausea, Denies Vomiting Genitourinary: No Symptoms Reported Musculoskeletal: see HPI, back pain, neck pain Skin: no symptoms reported; No rash Psychiatric/Neurological: Anxiety; Denies Headache, Denies Numbness, Denies Paresthesia, Denies Seizure, Denies Tingling, Denies Weakness Endocrine: No Symptoms Reported Hematologic/Lymphatic: No Symptoms Reported (MARIA LUISA GOOD DO) Past Bqvyooc-Ykrgjc-Jerzhi Hx Patient Social History Tobacco Use?: Yes (1/2 PPD) Tobacco type used: Cigarettes Smoking Status: Current Everyday Smoker Substance use?: No Alcohol Use?: No (MARIA LUISA GOOD DO) Seasonal Allergies Seasonal Allergies: No (MARIA LUISA GOOD DO) Past Medical History Surgeries: Yes (cyst from shoulder) Breast, Tubal Ligation Respiratory: No Cardiac: Yes Hypertension Neurological: No : No Reproductive Disorders: No Genitourinary: No Gastrointestinal: No Musculoskeletal: No Endocrine: Yes (OBESITY) Hypothyroidsim HEENT: No Cancer: Yes Breast Did You Recieve Any Treatments: Yes What Type of Treatment Did You: Radiation, Surgical Intervention BREAST CANCER DX 2017--S/P LEFT BREAST LUMPECOMTY 05/2018 AND RADIATION, NOW ON TAMOXIFEN Psychosocial: No Integumentary: No Blood Disorders: No (MARIA LUISA GOOD DO) Family Medical History SOCIAL HISTORY: -SMOKES 1/2 PPD -ETOH--DENIES USE -DRUGS--DENIES USE PAST SURGICAL HISTORY: -LEFT BREAST LUMPECTOMY 05/[address] ABBOTT -BILATERAL TUBAL LIGATION -CYST REMOVED FROM SHOULDER [address] CRESPO -REMOVAL OF ANAL CONDYLOMA [address] CRESPO (MARIA LUISA GOOD DO) Physical Exam Vital Signs Vital Signs - First Documented 02/22/21 05:23 Temp 36.4 Pulse 93 Resp 24 B/P (MAP) 132/87 (102) Pulse Ox 97 O2 Delivery Room Air (NURA HELTON MD) Vital Signs Capillary Refill : (MARIA LUISA GOOD DO) Height, Weight, BMI Height: 5'8.00" Weight: 219lbs. 0.0oz. 99.329454fe; 33.3 BMI Method: General Appearance: WD/WN, Anxious, Obese, Other (ANXIOUS, HYPERVENTILATING AT TIMES) Neck: Full Range of Motion, Normal Inspection, Non Tender, Supple; No Carotid Bruit, No JVD Respiratory: Chest Non Tender, Normal Breath Sounds, No Accessory Muscle Use, No Respiratory Distress Cardiovascular: Regular Rate, Rhythm, No Edema, No JVD, No Murmur, Normal Peripheral Pulses Gastrointestinal: Normal Bowel Sounds, No Organomegaly, No Pulsatile Mass, Non Tender, Soft, Other (NO BACK OR FLANK TENDERNESS. ) Extremity: Normal Capillary Refill, Normal Inspection, Normal Range of Motion, Non Tender, No Calf Tenderness, No Pedal Edema Neurologic/Psychiatric: Alert, Oriented x3, No Motor/Sensory Deficits, cotton seed culler II- XII Norm as Tested Skin: Normal Color, Warm/Dry; No Rash (MARIA LUISA GOOD DO) Progress/Results/Core Measures Results/Orders Lab Results Laboratory Tests Test 02/22/21 05:17 02/22/21 05:20 Range/Units SARS-CoV-2 RNA (RT-PCR) Detected H Not Detecte White Blood Count 11.9 H 4.3-11.0 10^3/uL Red Blood Count 4.85 3.80-5.11 10^6/uL Hemoglobin 14.9 11.5-16.0 g/dL Hematocrit 44 35-52 % Mean Corpuscular Volume 91 80-99 fL Mean Corpuscular Hemoglobin 31 25-34 pg Mean Corpuscular Hemoglobin Concent 34 32-36 g/dL Red Cell Distribution Width 13.0 10.0-14.5 % Platelet Count 361 130-400 10^3/uL Mean Platelet Volume 9.1 9.0-12.2 fL Immature Granulocyte % (Auto) 0 % Neutrophils (%) (Auto) 71 42-75 % Lymphocytes (%) (Auto) 17 12-44 % Monocytes (%) (Auto) 10 0-12 % Eosinophils (%) (Auto) 1 0-10 % Basophils (%) (Auto) 1 0-10 % Neutrophils # (Auto) 8.5 H 1.8-7.8 10^3/uL Lymphocytes # (Auto) 2.0 1.0-4.0 10^3/uL Monocytes # (Auto) 1.2 H 0.0-1.0 10^3/uL Eosinophils # (Auto) 0.2 0.0-0.3 10^3/uL Basophils # (Auto) 0.1 0.0-0.1 10^3/uL Immature Granulocyte # (Auto) 0.0 0.0-0.1 10^3/uL Prothrombin Time 12.5 12.2-14.7 SEC INR Comment 0.9 0.8-1.4 Activated Partial Thromboplast Time 30 24-35 SEC D-Dimer 0.58 H 0.00-0.49 UG/ML Sodium Level 137 135-145 MMOL/L Potassium Level 3.8 3.6-5.0 MMOL/L Chloride Level 103 98-107 MMOL/L Carbon Dioxide Level 23 21-32 MMOL/L Anion Gap 11 5-14 MMOL/L Blood Urea Nitrogen 16 7-18 MG/DL Creatinine 1.09 0.60-1.30 MG/DL Estimat Glomerular Filtration Rate 54 BUN/Creatinine Ratio 15 Glucose Level 105 70-105 MG/DL Calcium Level 9.8 8.5-10.1 MG/DL Corrected Calcium 9.7 8.5-10.1 MG/DL Magnesium Level 1.9 1.6-2.4 MG/DL Total Bilirubin 0.5 0.1-1.0 MG/DL Aspartate Amino Transf (AST/SGOT) 14 5-34 U/L Alanine Aminotransferase (ALT/SGPT) 14 0-55 U/L Alkaline Phosphatase 44 40-136 U/L Total Creatine Kinase 50 29-168 U/L Creatine Kinase MB 0.6 <6.6 NG/ML Myoglobin 27.5 10.0-92.0 NG/ML Troponin I < 0.028 <0.028 NG/ML B-Type Natriuretic Peptide 34.1 <100.0 PG/ML Total Protein 7.1 6.4-8.2 GM/DL Albumin 4.1 3.2-4.5 GM/DL Amylase Level 45 25-125 U/L Lipase 31 8-78 U/L Serum Test, Qualitative NEGATIVE NEGATIVE (NURA HELTON MD) My Orders Orders - NURA HELTON MD Ct Angio Chest W (02/22/21 06:03) Iohexol Injection (Omnipaque 350 Mg/Ml 1 (02/22/21 07:00) Received Contrast (Hold Metformin- Contr (02/22/21 07:00) Ns (Ivpb) (Sodium Chloride 0.9% Ivpb Bag (10/18/21 07:00) (NURA HELTON MD) Medications Given in ED Current Medications Medications Dose Ordered Sig/Malachi Route Start Time Stop Time Status Last Admin Dose Admin Aspirin 324 mg ONCE ONCE PO 02/22/21 05:15 02/22/21 05:17 DC 02/22/21 05:16 324 MG Iohexol 100 ml ONCE ONCE IV 02/22/21 07:00 02/22/21 07:01 DC 02/22/21 07:14 100 ML Ketorolac Tromethamine 30 mg ONCE ONCE IVP 02/22/21 05:30 02/22/21 05:31 DC 02/22/21 05:27 30 MG Sodium Chloride 80 ml ONCE ONCE IV 02/22/21 07:00 02/22/21 07:01 DC 02/22/21 07:14 80 ML (NURA HELTON MD) Vital Signs/I&O 02/22/21 02/22/21 05:23 07:53 Temp 36.4 Pulse 93 71 Resp 24 12 B/P (MAP) 132/87 (102) 105/74 Pulse Ox 97 97 O2 Delivery Room Air Room Air (NURA HELTON MD) Progress Progress Note : Progress Note COVID-19 TESTING PERFORMED--MUCH LATER PT STATES SHE TESTED + FOR COVID-19 12/11/20--NO TREATMENT GIVEN ASPIRIN NTG HELD DUE TO INITIAL BP IN 110'S GAVE TORADOL NO COUGH NO HYPOXIA NO TACHYCARDIA NO HYPOTENSION NO FEVER 0600--CARE TURNED OVER TO DR. 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 At that time chest x-ray was pending which was normal. D-dimer was elevated and pain continued so ordered a CTA chest. This was negative for a PE but did have some findings of sequela of Covid. Generally though these findings were pretty mild. Vitals are normal and she is well-appearing. I believe she is stable for discharge with outpatient follow-up. She did have an enlarged lymph node on the CT which I made her aware of and recommended follow-up CT scan after she has improved, and recommend she tell her PCP this. (NURA HELTON MD) Initial ECG Impression Date: Feb 22, 2021 Initial ECG Impression Time: 05:09 Initial ECG Rate: 92 Initial ECG Rhythm: Normal Sinus Initial ECG Comparisson: No Previous ECG Available (MARIA LUISA GOOD DO) Diagnostic Imaging Diagonstic Imaging: Xray, CT (CTA chest) Plain Films/CT/US/NM/MRI: chest Comments [facility] [place] NAME: JET DEGROOT [facility] REC#: [id number] PT STATUS: REG ER : 1970 PHYSICIAN: MARIA LUISA GOOD DO ADMIT DATE: 02/22/21/ER Draft Date of Exam:02/22/21 CHEST 1 VIEW, AP/PA ONLY EXAMINATION: Chest 1 view HISTORY: Chest pain COMPARISON: None available. FINDINGS: Heart size and pulmonary vasculature are normal. There are low lung volumes with minimal bibasilar interstitial opacities. No pleural effusion or pneumothorax. The osseous structures are intact. IMPRESSION: 1. Low lung volumes with minimal bibasilar atelectasis or consolidation. Dictated on workstation # [id number] Dict: 02/22/21 0608 Trans: 02/22/21 0610 [id number] Interpreted by: BHARATH MCKEON DO Electronically signed by: [facility] [place] NAME: JET DEGROOT [facility] REC#: [id number] PT STATUS: REG ER : 1970 PHYSICIAN: NURA HELTON MD ADMIT DATE: 02/22/21/ER Signed Date of Exam:02/22/21 CT ANGIO CHEST W EXAMINATION: CT angiography of the chest. TECHNIQUE: Contrast enhanced thin section helical images were obtained through the chest with intravenous contrast timed for the optimal opacification of the arterial structures per CTA protocol. Post-processing, reconstructions and interpretation of angiographic images of the vessels was performed. 3D MIP reconstructions were performed and reviewed. All CT scans use one or more of the following dose optimizing techniques: automated exposure control, MA and/or KvP adjustment based on a patient size and exam type, or iterative reconstruction. HISTORY: Covid positive, chest pain COMPARISON: 02/22/2021 FINDINGS: Vascular: No filling defects within the pulmonary arteries. Thoracic aorta is normal in caliber. Thyroid: The thyroid is normal. Mediastinum: Heart size is normal without significant pericardial effusion. There is enlarged left anterior mediastinal lymph nodes measuring up to 1.9 x 2.8 cm. Lungs and airways: There are mild groundglass opacities seen within the left lung base. There is a small left pleural effusion. No pneumothorax. The airways are normal. Upper abdomen: The subphrenic structures are normal. Musculoskeletal: Degenerative changes of the spine without suspicious osseous lesion or compression fracture. IMPRESSION: 1. No findings of pulmonary embolus. 2. Small left pleural effusion with left lung patchy groundglass opacities compatible with history of Covid-19 pneumonia. 3. Enlarged left mediastinal lymph node which is indeterminate but may be reactive. Recommend CT follow-up after resolution of symptoms. Dictated by: Dictated on workstation # [id number] Dict: 02/22/2156 Trans: 02/22/21720 JUAN DANIEL [id number] Interpreted by: BHARATH MCKEON DO Electronically signed by: BHARATH MCKEON DO 02/22/21720 (NURA HELTON MD) Departure Impression Primary Impression: Chest pain Qualified Codes: R07.9 - Chest pain, unspecified Disposition: 01 HOME, SELF-CARE Condition: Stable Departure-Patient Inst. Decision time for Depature: 07:31 (NURA HELTON MD) Referrals: [facility] [place] Primary Care Physician KENYETTA ENCISO MD (Family) Primary Care Physician Patient Instructions: Chest Pain Add. Discharge Instructions: You were seen in the emergency department for chest pain. Your labs were reassuring, EKG reassuring, and your images of your chest did not show any significant concerns. There were some subtle findings that showed that you did in fact have Covid, but these were very mild and will get better with time. You also had an enlarged lymph node in your chest which often is there from infection. We do recommend to get a repeat CT of your chest within the next couple months after your symptoms have resolved to be ensured that the lymph node has in fact gotten smaller. I recommend this be done by your primary care doctor. [facility] [place], [place] NAME: JET DEGROOT [facility] REC#: [id number] PT STATUS: REG ER : 1970 PHYSICIAN: NURA HELTON MD ADMIT DATE: 02/22/21/ER Signed Date of Exam:02/22/21 CT ANGIO CHEST W EXAMINATION: CT angiography of the chest. TECHNIQUE: Contrast enhanced thin section helical images were obtained through the chest with intravenous contrast timed for the optimal opacification of the arterial structures per CTA protocol. Post-processing, reconstructions and interpretation of angiographic images of the vessels was performed. 3D MIP reconstructions were performed and reviewed. All CT scans use one or more of the following dose optimizing techniques: automated exposure control, MA and/or KvP adjustment based on a patient size and exam type, or iterative reconstruction. HISTORY: Covid positive, chest pain COMPARISON: 02/22/2021 FINDINGS: Vascular: No filling defects within the pulmonary arteries. Thoracic aorta is normal in caliber. Thyroid: The thyroid is normal. Mediastinum: Heart size is normal without significant pericardial effusion. There is enlarged left anterior mediastinal lymph nodes measuring up to 1.9 x 2.8 cm. Lungs and airways: There are mild groundglass opacities seen within the left lung base. There is a small left pleural effusion. No pneumothorax. The airways are normal. Upper abdomen: The subphrenic structures are normal. Musculoskeletal: Degenerative changes of the spine without suspicious osseous lesion or compression fracture. IMPRESSION: 1. No findings of pulmonary embolus. 2. Small left pleural effusion with left lung patchy groundglass opacities compatible with history of Covid-19 pneumonia. 3. Enlarged left mediastinal lymph node which is indeterminate but may be reactive. Recommend CT follow-up after resolution of symptoms. Dictated by: Dictated on workstation # [id number] Dict: 02/22/21 0656 Trans: 02/22/21 0721 JUAN DANIEL [id number] Interpreted by: BHARATH MCKEON DO Electronically signed by: BHARATH MCKEON DO 02/22/2121 Work/School Note: Work Release Form Date Seen in the Emergency Department: Feb 22, 2021 Return to Work: Feb 23, 2021 Restrictions: No Restrictions MARIA LUISA GOOD DO Feb 22, 2021 05:22 NURA HELTON MD Feb 22, 2021 06:23
[2021-02-22 05:27] LABS: BASOPHILS # (AUTO) 0.1 10^3/uL (0.0-0.1); BASOPHILS % (AUTO) 1 % (0-10); EOSINOPHILS # (AUTO) 0.2 10^3/uL (0.0-0.3); EOSINOPHILS % (AUTO) 1 % (0-10); HEMATOCRIT 44 % (35-52); HEMOGLOBIN 14.9 g/dL (11.5-16.0); LYMPHOCYTES % (AUTO) 17 % (12-44); MEAN CORPUSCULAR HEMOGLOBIN 31 pg (25-34); MEAN CORPUSCULAR HGB CONC 34 g/dL (32-36); MEAN CORPUSCULAR VOLUME 91 fL (80-99); MEAN PLATELET VOLUME 9.1 fL (9.0-12.2); MONOCYTES # (AUTO) 1.2 10^3/uL (0.0-1.0); MONOCYTES % (AUTO) 10 % (0-12); NEUTROPHILS # (AUTO) 8.5 10^3/uL (1.8-7.8); NEUTROPHILS % (AUTO) 71 % (42-75); PLATELET COUNT 361 10^3/uL (130-400); WHITE BLOOD COUNT 11.9 10^3/uL (4.3-11.0)
[2021-02-22] MEDS ORDERED: KETOROLAC 30 MG/ML VIAL IVP ONE (05:30)
[2021-02-22 05:39] LABS: ALBUMIN 4.1 GM/DL (3.2-4.5); POTASSIUM 3.8 MMOL/L (3.6-5.0)
[2021-02-22 05:40] LABS: CALCIUM 9.8 MG/DL (8.5-10.1); INR 0.9 (0.8-1.4); PROTHROMBIN TIME PATIENT 12.5 SEC (12.2-14.7)
[2021-02-22 05:41] LABS: TOTAL PROTEIN 7.1 GM/DL (6.4-8.2)
[2021-02-22 05:43] LABS: BILIRUBIN,TOTAL 0.5 MG/DL (0.1-1.0)
[2021-02-22 05:45] LABS: CREATININE SERUM 1.09 MG/DL (0.60-1.30)
[2021-02-22 05:49] LABS: MAGNESIUM 1.9 MG/DL (1.6-2.4)
[2021-02-22 05:57] LABS: CREATINE KINASE MB 0.6 NG/ML (<6.6)
--- NOTE | 2021-02-22 06:10 | Diagnostic Imaging Report ---
EXAMINATION: Chest 1 view HISTORY: Chest pain COMPARISON: None available. FINDINGS: Heart size and pulmonary vasculature are normal. There are low lung volumes with minimal bibasilar interstitial opacities. No pleural effusion or pneumothorax. The osseous structures are intact. IMPRESSION: 1. Low lung volumes with minimal bibasilar atelectasis or consolidation. Dictated by: Dictated on workstation # [id number]
[2021-02-22] MEDS ORDERED: HOLD METFORMIN - RECEIVED CONTRAST 20 ML VIAL IV SCH (07:00)
[2021-02-22] MEDS ORDERED: IOHEXOL 350 MG/ML 100 ML (OMNIPAQUE 350) VIAL IV ONE (07:00)
[2021-02-22] MEDS ORDERED: NS 100 ML (IVPB) BAG IV ONE (07:00)
--- NOTE | 2021-02-22 07:10 | Diagnostic Imaging Report ---
EXAMINATION: CT angiography of the chest. TECHNIQUE: Contrast enhanced thin section helical images were obtained through the chest with intravenous contrast timed for the optimal opacification of the arterial structures per CTA protocol. Post-processing, reconstructions and interpretation of angiographic images of the vessels was performed. 3D MIP reconstructions were performed and reviewed. All CT scans use one or more of the following dose optimizing techniques: automated exposure control, MA and/or KvP adjustment based on a patient size and exam type, or iterative reconstruction. HISTORY: Covid positive, chest pain COMPARISON: 02/22/2021 FINDINGS: Vascular: No filling defects within the pulmonary arteries. Thoracic aorta is normal in caliber. Thyroid: The thyroid is normal. Mediastinum: Heart size is normal without significant pericardial effusion. There is enlarged left anterior mediastinal lymph nodes measuring up to 1.9 x 2.8 cm. Lungs and airways: There are mild groundglass opacities seen within the left lung base. There is a small left pleural effusion. No pneumothorax. The airways are normal. Upper abdomen: The subphrenic structures are normal. Musculoskeletal: Degenerative changes of the spine without suspicious osseous lesion or compression fracture. IMPRESSION: 1. No findings of pulmonary embolus. 2. Small left pleural effusion with left lung patchy groundglass opacities compatible with history of Covid-19 pneumonia. 3. Enlarged left mediastinal lymph node which is indeterminate but may be reactive. Recommend CT follow-up after resolution of symptoms. Dictated by: Dictated on workstation # [id number]
[2021-02-22 07:53] VITALS: BP 105/74
== END 2021-02-22 07:53 | disposition home or self-care (01) ==
LOC: EDUNIT# 05:01 → ER 05:05
DX: U07.1 COVID-19 (principal); I10 Essential (primary) hypertension; E66.9 Obesity, unspecified; F17.210 Nicotine dependence, cigarettes, uncomplicated; Z68.33 Body mass index [BMI] 33.0-33.9, adult; Z79.899 Other long term (current) drug therapy
CPT/HCPCS: 36415; 71045; 71275; 80053; 82150; 82550; 82553; 83690; 83735; 83874; 83880; 84484; 84703; 85025; 85379; 85610; 85730; 87636; 93005; 93041

== ENCOUNTER 2021-06-02 13:01 | Outpatient (RCR) | payer SELFPAY ==
[~2021-06-02 13:01] MED LIST changes: -LISI1TAB26 PO; +LISI1TAB48 PO
[2021-06-02 13:12] LABS: BASOPHILS # (AUTO) 0.1 10^3/uL (0.0-0.1); BASOPHILS % (AUTO) 1 % (0-10); EOSINOPHILS # (AUTO) 0.1 10^3/uL (0.0-0.3); EOSINOPHILS % (AUTO) 2 % (0-10); HEMATOCRIT 42 % (35-52); HEMOGLOBIN 14.1 g/dL (11.5-16.0); LYMPHOCYTES % (AUTO) 24 % (12-44); MEAN CORPUSCULAR HEMOGLOBIN 30 pg (25-34); MEAN CORPUSCULAR HGB CONC 34 g/dL (32-36); MEAN CORPUSCULAR VOLUME 90 fL (80-99); MONOCYTES # (AUTO) 0.8 X 10^3 (0.0-1.0); MONOCYTES % (AUTO) 9 % (0-12); NEUTROPHILS # (AUTO) 5.6 X 10^3 (1.8-7.8); NEUTROPHILS % (AUTO) 65 % (42-75); PLATELET COUNT 375 10^3/uL (130-400); WHITE BLOOD COUNT 8.6 10^3/uL (4.3-11.0)
[2021-06-02 13:30] LABS: ALBUMIN 4.1 GM/DL (3.2-4.5); BILIRUBIN,TOTAL 0.3 MG/DL (0.1-1.0); CALCIUM 9.9 MG/DL (8.5-10.1); CREATININE SERUM 0.82 MG/DL (0.60-1.30); POTASSIUM 3.2 MMOL/L (3.6-5.0); TOTAL PROTEIN 7.2 GM/DL (6.4-8.2)
== END 2021-06-07 | disposition home or self-care (01) ==
LOC: ONC 13:01
PROVIDERS: ATTEND Internal Medicine Hematology & Oncology
DX: D05.10 Intraductal carcinoma in situ of unspecified breast (principal); I10 Essential (primary) hypertension; E03.9 Hypothyroidism, unspecified; E66.9 Obesity, unspecified; Z72.0 Tobacco use
CPT/HCPCS: 80053; 85025; G0463; 36415; 99213

== ENCOUNTER → 2021-06-15 | Outpatient (CLI) | payer SELFPAY ==
--- NOTE | 2021-06-15 19:17 | Diagnostic Imaging Report ---
PROCEDURE: CT chest without contrast, 06/15/2021. TECHNIQUE: Multiple contiguous axial images were obtained through the chest without the use of intravenous contrast. Auto Exposure Controls were utilized during the CT exam to meet ALARA standards for radiation dose reduction. INDICATION: Follow-up prior CT. Sharp pain when taking deep breaths. Recovering from COVID last year. History of left breast lumpectomy with radiation treatment. COMPARISON: 02/22/2021 FINDINGS: Previously noted patchy airspace opacities have resolved as has the pleural effusion. There is a tiny nodule within the right upper lobe image #53 measuring approximately 3 mm in size. This is not appreciated on previous examination but could be a change in slice selection. This should be followed using the Fleischner criteria. No other masses or lesions appreciated. Thyroid is enlarged. Sonographic characterization recommended non-emergently. There are a few scattered prominent lymph nodes in the mediastinum but overall markedly improved from previous imaging. Similar findings noted in the kody. There is a density in the lateral border of the left breast which could represent posttreatment change/scar but is better characterized with mammography. A mass in the region not excluded by CT. Visualized upper abdomen unremarkable. There is no acute osseous abnormality. IMPRESSION: 1. Tiny nodule in the right upper lobe that should be followed using Fleischner criteria especially given the history of carcinoma. 2. Improving lymphadenopathy. 3. Lobular thyroid gland (see above discussion). 4. Not mentioned in the body of the report are nonspecific sclerotic foci within the thoracic spine, stable from previous imaging and likely bone islands. However, this could be followed as well given the history of prior carcinoma. Dictated by: Dictated on workstation # [id number]
== END ==
LOC: RAD 17:44
PROVIDERS: ATTEND Pediatrics
DX: R59.0 Localized enlarged lymph nodes (principal); E04.9 Nontoxic goiter, unspecified; R91.8 Other nonspecific abnormal finding of lung field; Z92.3 Personal history of irradiation; Z86.16 Personal history of COVID-19
CPT/HCPCS: 71250

== ENCOUNTER → 2022-01-04 | Outpatient (CLI) | payer OTHER ==
--- NOTE | 2022-01-05 18:07 | Diagnostic Imaging Report ---
EXAMINATION: Bilateral screening mammogram with CAD. The current study was also evaluated with a Computer Aided Detection (CAD) system. COMPARISON: This study was compared to the prior exams of 10/07/2020, 01/09/2019 and 01/31/2018. By history, the patient has had a lumpectomy on the left. At this time there are no current complaints. The post surgical changes involving the left breast seen on the prior exam of 10/08/2019 are again evident and essentially no different. There is no sign of recurrent malignancy. The breasts are predominantly fatty. When compared to the previous study there has been no significant change. There is no primary or secondary sign of malignancy noted. IMPRESSION: 1. The post lumpectomy changes involving the left breast seen previously appear stable. There is no evidence for recurrent malignancy. 2. There is no evidence for malignancy involving either breast otherwise. ACR BI-RADS Category 1: Negative. Result letter will be mailed to the patient. Note: At least 10% of breast cancer is not imaged by mammography. Dictated by: Dictated on workstation # [id number]
== END ==
LOC: RAD 15:45
PROVIDERS: ATTEND Internal Medicine Hematology & Oncology
DX: Z12.31 Encounter for screening mammogram for malignant neoplasm of breast (principal); Z90.12 Acquired absence of left breast and nipple
CPT/HCPCS: 77063; 77067

== ENCOUNTER → 2022-01-11 | Outpatient (CLI) | payer OTHER ==
[2022-01-11 16:25] LABS: BASOPHILS % (AUTO) 1 % (0-10); EOSINOPHILS % (AUTO) 0 % (0-10); HEMATOCRIT 38 % (35-52); LYMPHOCYTES # (AUTO) 0.4 10^3/uL (1.0-4.0); LYMPHOCYTES % (AUTO) 6 % (12-44); MEAN CORPUSCULAR HEMOGLOBIN 30 pg (25-34); MEAN CORPUSCULAR HGB CONC 34 g/dL (32-36); MEAN CORPUSCULAR VOLUME 87 fL (80-99); MEAN PLATELET VOLUME 9.3 fL (9.0-12.2); MONOCYTES # (AUTO) 0.6 10^3/uL (0.0-1.0); MONOCYTES % (AUTO) 8 % (0-12); NEUTROPHILS % (AUTO) 85 % (42-75); PLATELET COUNT 300 10^3/uL (130-400)
[2022-01-11 16:43] LABS: BILIRUBIN,TOTAL 0.4 MG/DL (0.1-1.0); CALCIUM 9.9 MG/DL (8.5-10.1); CREATININE SERUM 0.97 MG/DL (0.60-1.30); POTASSIUM 3.5 MMOL/L (3.6-5.0); TOTAL PROTEIN 7.2 GM/DL (6.4-8.2)
== END ==
LOC: ONC 15:41 → EDSTATUS 16:18
PROVIDERS: ATTEND Internal Medicine Hematology & Oncology
DX: C50.919 Malignant neoplasm of unspecified site of unspecified female breast (principal); I10 Essential (primary) hypertension; E03.9 Hypothyroidism, unspecified; E66.01 Morbid (severe) obesity due to excess calories; Z72.0 Tobacco use
CPT/HCPCS: 36415; 80053; 85025